=== PATIENT | female | born 1980 | race Caucasian/White ===

== ENCOUNTER → 2016-04-04 | Outpatient (CLI) | payer BC ==
[~2016-04-04] MED LIST: BCPILLS PO; LEVO50TA6 PO; SERT-234 PO
[2016-04-04 13:37] LABS: CHOLESTEROL/HDL RATIO 4.7; THYROID STIMULATING HORMONE 1.62 uIu/ml (0.300-4.500)
== END | disposition home or self-care (01) ==
LOC: C.LABMFLN 08:21
PROVIDERS: ATTEND Family Medicine
DX: Z13.1 Encounter for screening for diabetes mellitus (principal); Z13.220 Encounter for screening for lipoid disorders; E03.9 Hypothyroidism, unspecified

== ENCOUNTER → 2016-05-17 | Outpatient (CLI) | payer BC | END | disposition home or self-care (01) | LOC: C.PAPS 11:45 | PROVIDERS: ATTEND Obstetrics & Gynecology | DX: Z01.411 Encounter for gynecological examination (general) (routine) with abnormal findings (principal); R87.616 Satisfactory cervical smear but lacking transformation zone ==

== ENCOUNTER 2023-07-15 05:29 | Observation (INO) ==
--- NOTE | 2023-07-01 09:21 | Anesthesiology Consultation ---
Date of Service July 01, 2023 Assessment & Plan (1) Encounter for pre-operative examination: - check urine test STAT am DOS. - Per curriculum and assessment coordinator on 06/30/23: No known infectious disease contacts, current infectious disease symptoms in past 10 days or COVID positive test result in the past 30 days. Chart Review Chart Review: Acceptable Risk for Surgery and Patient NOT seen in Pre Admission Testing History Surgery Operation Date: 07/15/23 07:00 Proposed Procedures p Bilateral Breast Mastectomy - Reji Beasley DO s First Stage Immediate Breast Reconstruction with Tissue Biostatistics Manager and Acellular Dermal Matrix - Sanam Arnold MD Height/Weight Height: 5 ft 6 in Weight: 120.656 kg Allergies Allergy/AdvReac Type Severity Reaction Status Date / Time chlorpheniramine Allergy Unknown LOOPY Verified 06/30/23 12:16 [From Aller-Chlor DEPRESSIVE Decongestant] STATE pseudoephedrine Allergy Unknown LOOPY Verified 06/30/23 12:16 [From Aller-Chlor DEPRESSIVE Decongestant] STATE Medications Home Medications Medication Instructions Recorded Confirmed Last Taken tamoxifen 20 mg tablet 20 mg PO HS 03/01/22 06/30/23 Unknown buspirone 15 mg tablet 15 mg PO HS #90 tabs 02/17/23 06/30/23 Unknown sertraline 100 mg tablet 150 mg (1.5 x 100 mg) PO HS #135 04/25/23 06/30/23 Unknown tabs levothyroxine 50 mcg tablet 50 mcg PO DAILYBB #90 tabs 06/21/23 06/30/23 Unknown cephalexin 500 mg capsule 500 mg PO TID 2 weeks #42 caps 06/30/23 06/30/23 Unknown omega 3-vbg-evm-fish oil 60 mg-90 1 cap PO DAILY 06/30/23 06/30/23 Unknown mg-500 mg capsule (Fish Oil) oxycodone-acetaminophen 5 mg-325 1 tab PO Q4H PRN pain #18 tabs 06/30/23 06/30/23 Unknown mg tablet (Endocet) pravastatin 10 mg tablet 10 mg PO HS 06/30/23 06/30/23 Unknown Past Medical History Medical History Abnormal menstrual cycle Premenopausal per 06/2021 INSURANCE ACCOUNT SPECIALIST note ADD (attention deficit disorder) Atypical ductal hyperplasia of right breast Depression with anxiety Hiatal hernia Hyperlipidemia Diet controlled per 05/2021 PCP note Hypothyroidism Kidney stones passed on own MVP (mitral valve prolapse) no cardio > No murmur noted at 05/2021 PCP appt Past Family History Family History Grandmother (Paternal) Breast cancer BRCA 1 positive Diabetes Aunt , Passed age 31 Breast cancer, Onset Age: 28 BRCA 1 positive, bilateral masectomy, chemo, radiation Father Diabetes Depression Hypertension Mother Hypertension Diabetes Unknown Breast cancer, Onset Age: 26 BRCA 1 positive, bilateral masectomy, chemo, radiation Aunt Breast cancer, Onset Age: 42 BRCA 1 positive, diagnosed at 42 as DCIS - 6 years later path revealed actualy invasive BC, bilateral masectomy Aunt Breast cancer, Onset Age: 44 BRCA 1 negative, DCIS, radiation and hormonal therapy Daughter No problems noted. Son No problems noted. Other Ovarian cancer Denies family history of Colorectal cancer Past Surgical History Surgical History H/O oral surgery WISDOM TEETH H/O right breast biopsy (11/06/21) Right Breast Biopsy with Needle Localization - Reji Beasley DO History of colonoscopy History of lumpectomy of left breast (2016) 2012 History of lumpectomy of right breast S/P fine needle aspiration (2009) Left Breast Social History Smoking Status: Never smoker Do You Dip or Chew Tobacco: No Hx Alcohol Use: No Hx Substance Use: No substance use type: does not use Lab Results Anesthesia Preop Results Results Anesthesia Widget: WBC 4.91 K/ul (4.8-10.8) 06/30/23 Hgb 12.4 g/dl (12.0-16.0) 06/30/23 Hct 36.9 % (37.0-47.0) L 06/30/23 Plt 219 K/uL (130-400) 06/30/23 Na 137 mmol/L (136-145) 06/30/23 K 3.5 mmol/L (3.5-5.1) 06/30/23 Cl 106 mmol/L (98-107) 06/30/23 CO2 22 mmol/L (21-32) 06/30/23 BUN 12 mg/dl (6-23) 06/30/23 Creat 0.67 mg/dl (0.6-1.2) 06/30/23 Glucose Level 139 mg/dl (70-99(Fasting)) H 06/30/23 PT 10.4 Seconds (9.0-12.0) 06/30/23 INR 0.9 (0.9-1.1) 06/30/23
[2023-07-15] MEDS: LR 15ML/HR IV SCH (06:20)
[2023-07-15] MEDS: LR 60ML/HR IV SCH (06:21)
--- NOTE | 2023-07-15 06:45 | History & Physical Bridge Note ---
Date of Service July 15, 2023 History & Physical Bridge Note I have examined the patient, reviewed the History & Physical and in the interval since the performance of the History & Physical I have noted the following changes of clinical significance: no changes noted
[2023-07-15] MEDS ORDERED: REMIFENTANIL HCL 1 MG VIAL IV ONE (06:47)
[2023-07-15] MEDS ORDERED: DexMEDEtomidine HCL IV 100 MCG/ML VIAL IV ONE (06:47)
[2023-07-15] MEDS ORDERED: fentaNYL citrate PF 100 MCG/2 ML VIAL ONE (06:48)
[2023-07-15] MEDS ORDERED: MIDAZOLAM HCL 1 MG/ML 2ML VIAL ONE (06:48)
[2023-07-15] MEDS ORDERED: DEXAMETHASONE SOD INJ 4 MG/ML VIAL ONE (06:53)
[2023-07-15] MEDS ORDERED: LIDOCAINE 2% 2 ML VIAL/AMP(20MG/ML) INFIL ONE (06:53)
[2023-07-15] MEDS ORDERED: ROCURONIUM BROMIDE 10 MG/ML 5 ML VIAL IV ONE ×4 (06:53→12:11)
[2023-07-15] MEDS ORDERED: ONDANSETRON INJ 2 MG/ML 2 ML VIAL ONE (06:53)
[2023-07-15] MEDS ORDERED: PROPOFOL IV EMULSION 10 MG/ML 20 ML VIAL IV ONE (06:53)
[2023-07-15] MEDS: ceFAZolin 3000MG 3,000 MG/72.5 ML BAG IV SCH (07:00)
[2023-07-15] MEDS: TRANEXAMIC ACID 1,000 MG **IV Pre-op IV SCH (07:20)
[2023-07-15] MEDS: LIDOCAINE 1%/EPINEPHRINE 1:100,000 20 ML VIAL ONE (07:35)
[2023-07-15] MEDS ORDERED: PROPOFOL IV EMULSION 10 MG/ML 100 ML VIAL IV ONE (08:14)
[2023-07-15] MEDS ORDERED: ATROPINE SULFATE 0.1 MG/ML 10ML SYR IV PRN (09:17)
[2023-07-15] MEDS ORDERED: ONDANSETRON INJ 2 MG/ML 2 ML VIAL IV PRN ×2 (09:17→14:59)
[2023-07-15] MEDS ORDERED: HYDROmorphone INJ 2 MG/ML SYR/VIAL IV PRN (09:17)
[2023-07-15] MEDS ORDERED: ePHEDrine sulfate 50 MG/ML AMP IV PRN (09:17)
[2023-07-15] MEDS ORDERED: PROMETHAZINE HCL 6.25 MG in SODIUM CHLORIDE 0.9% 50 ML IV PRN (09:17)
[2023-07-15] MEDS ORDERED: diphenhydrAMINE 50 MG/ML VIAL ONE (09:20)
[2023-07-15] MEDS ORDERED: ceFAZolin 330 MG/ML 1 GM VIAL ONE ×2 (09:22)
--- NOTE | 2023-07-15 10:25 | Post Operative Brief Note ---
PG Immediate Post Op with CF Date of Surgery July 15, 2023 Pre & Post Diagnosis Operation Date: 07/15/23 07:00 Pre-Op Diagnosis: History Right Breast Ductal Carcinoma in Situ, Left Breast Papilloma Post-Op Diagnosis: History Right Breast Ductal Carcinoma in Situ, Left Breast Papilloma I identified the patient and participated in the time-out.: Yes Procedure Operation Date: 07/15/23 07:00 Actual Procedures p Bilateral Breast Mastectomy - Reji Beasley DO Surgeon Reji Beasley DO Color Checker Roving Or Yarn Tiffani Palomo PA-C, Zofia Fink PA-C Estimated Blood Loss 50 Findings Consistent with Post-Op Diagnosis Specimens Specimen Description: A: Right Breast-Short stitch superior; Long stitch lateral B: Left Breast-Short stitch superior; Long stitch lateral C: Additional left breast tissue, lateral axillary tail Anesthesia Type General Complications none Disposition Disposition: Recovery Room
--- NOTE | 2023-07-15 10:27 | Operative Report ---
PG Post Operative Report Pre & Post Diagnosis Operation Date: 07/15/23 07:00 Pre-Op Diagnosis: History Right Breast Ductal Carcinoma in Situ, Left Breast Papilloma Post-Op Diagnosis: History Right Breast Ductal Carcinoma in Situ, Left Breast Papilloma I identified the patient and participated in the time-out.: Yes Procedure Operation Date: 07/15/23 07:00 Actual Procedures p Bilateral Breast Mastectomy - Reji Beasley DO Surgeon Reji Beasley DO Business Continuity Management Director Tiffani Palomo PA-C, Zfoia Fink PA-C Estimated Blood Loss 50 Findings Consistent with Post-Op Diagnosis Specimens A: Right Breast-Short stitch superior; Long stitch lateral B: Left Breast-Short stitch superior; Long stitch lateral C: Additional left breast tissue, lateral axillary tail Drains None Anesthesia Type General Complications none Disposition Disposition: Recovery Room Indications 43 yo female with history of right breast DCIS, now with left breast papilloma Description of Procedure The patient was brought to the OR and placed in the supine position with both arms abducted. At this time she underwent general endotracheal anesthesia without any problems. She was given appropriate pre-operative antibiotics. Her bilateral chest and axilla were prepped and draped in the usual sterile fashion. Timeout was called. The procedure was verified as Bilateral Total Mastectomy. Surgical, anesthesia and nursing teams agreed and the procedure was begun. A transverse elliptical incision was made on the right breast to include the nipple areolar complex along the skin lines marked out by Dr. Arnold This was carried down the the subcutaneous tissue with electrocautery. At this point skin flaps were raised with electrocautery superiorly to the clavicle, medially to the sternum, inferiorly to the inframammary fold, and laterally to the latissimus. The breast tissue was then removed from the pectoralis major muscle along the with fascia. The breast was then transected laterally and sent of as specimen. The chest was irrigated until clear and hemostasis was achieved and complete using electrocautery. We then packed the right chest with wet lap pads and proceeded to the left mastectomy. The left mastectomy was completed in the same fashion as the right. There was some extra tissue in the left lateral axillary tail that was excised after the breast was removed and sent as a separate specimen. At this time the incision was irrigated until clear. Hemostasis was achieved using electrocautery. Hemostasis was complete. The satnam tient was then left intubated under general anesthesia and care turned over to Dr. Arnold for her portion of the case and the patient remained stable throughout the entire case. Needle and sponge count were correct x 2. The physician assistants was present and scrubbed for the entire case. They were essential for positioning, prepping and draping the patient, retraction and exposure, closure of the incision and placement of the dressings. I attest to the content of the Intraoperative Record and any orders documented therein. Any exceptions are noted below.
[2023-07-15] MEDS: ceFAZolin 2000MG 2,000 MG/15 ML SYR IV ONE (11:00)
[2023-07-15] MEDS: GENTAMICIN SULFATE 40 MG/ML 2 ML VIAL ONE (11:11)
[2023-07-15] MEDS: ceFAZolin 330 MG/ML 1 GM VIAL ONE (11:12)
[2023-07-15] MEDS: BUPIVACAINE 0.25% PF 30 ML VIAL ONE (11:13)
[2023-07-15] MEDS ORDERED: HYDROmorphone INJ 1 MG/ML SYRINGE ONE ×2 (12:23→12:38)
[2023-07-15] MEDS ORDERED: GLYCOPYRROLATE 0.2 MG/ML VIAL ONE ×2 (12:30→12:31)
[2023-07-15] MEDS ORDERED: NEOSTIGMINE METHYLSULFATE 1 MG/ML 10ML VIAL ONE (12:30)
[2023-07-15] MEDS: [UNRECOGNIZED DRUG - REMARK] IV SCH (12:30)
--- NOTE | 2023-07-15 12:50 | Post Operative Brief Note ---
PG Immediate Post Op with CF Date of Surgery July 15, 2023 Pre & Post Diagnosis Operation Date: 07/15/23 07:00 Pre-Op Diagnosis: Right Breast Ductal Carcinoma in Situ, Left Breast Papilloma Post-Op Diagnosis: Right Breast Ductal Carcinoma in Situ, Left Breast Papilloma I identified the patient and participated in the time-out.: Yes Procedure Operation Date: 07/15/23 07:00 Actual Procedures p Bilateral Breast Mastectomy - Reji Beasley DO s Bilateral First Stage Immediate Breast Reconstruction with Tissue Janitorial Maintenance Worker and Acellular Dermal Matrix - Sanam Arnold MD Surgeon Sanam Arnold MD Roofing Plant Supervisor Tiffani Palomo PA-C, Zofia Fink PA-C Estimated Blood Loss 50 Findings See Below 6x4 cm area left lateral superior flap thin but with capillary refill, no venous congestion Specimens Specimen Description: A: Right Breast-Short stitch superior; Long stitch lateral B: Left Breast-Short stitch superior; Long stitch lateral C: Additional left breast tissue, lateral axillary tail Drains K[place]ney Catheter and Laith-Bingham Drain (15Fr Round to Bilateral Breast) Anesthesia Type General Complications none
--- NOTE | 2023-07-15 13:16 | Operative Report ---
PG Post Operative Report Pre & Post Diagnosis Operation Date: 07/15/23 07:00 Pre-Op Diagnosis: Right Breast Ductal Carcinoma in Situ, Left Breast Papilloma Post-Op Diagnosis: Right Breast Ductal Carcinoma in Situ, Left Breast Papilloma I identified the patient and participated in the time-out.: Yes Procedure Operation Date: 07/15/23 07:00 Actual Procedures p Bilateral Breast Mastectomy - Reji Beasley, DO s Bilateral First Stage Immediate Breast Reconstruction with Tissue Executive Associate and Acellular Dermal Matrix - Sanam Arnold MD Surgeon Sanam Arnold MD Pipe Fitter Soft Copper Tiffani Palomo PA-C, Zofia Fink PA-C Estimated Blood Loss 50 Findings See Below Specimens per Dr. Beasley Drains JPx2 Anesthesia Type General Complications none Disposition Disposition: Recovery Room Indications History right breast ductal carcinoma in situ, s/p radiation and lumpectomy, intraductal papilloma on the left, strong family history of breast cancer, desiring bilateral mastectomy with reconstruction Description of Procedure Risk, benefits, terms of procedure were explained to the patient agreed and signed consent. She was notified about the preoperative holding area, marked with Dr. Beasley present prior to heading to the OR. Bilateral mastectomy was performed by Dr. Beasley and will be separately dictated. A new timeout procedure was performed upon his completion, surgical field was prepped with Betadine and redraped. I began with the left side. Wound was inspected and hemostasis was achieved with electrocautery. There was a 4 x 6 cm area on the left superior lateral flap which was quite thin, located about 4 cm superior to the incision. did appear to have capillary refill, bright red bleeding, and without evidence of venous congestion so I did elect to leave it in place. Remainder of the flap was of uniform thickness. Pectoralis major muscle was then identified and elevated. Inferior attachments of pectoralis major muscle were divided along the ribs medially to the sternum. None of the sternal attachments were dissected. The retropectoral plane was then developed using electrocautery. Hemostasis was achieved using cautery. Once adequate dissection had been performed, I then chose a piece of medium contour thick AlloDerm which was then used to create a sling for the lower pole. This was first sutured to the inframammary fold using 2-0 Vicryl U stitches. Pocket was then measured and base diameter was 14 cm. Therefore, I selected a Allergan style 133S MVT tissue crown and bridge dental lab technician with base diameter of 14 cm, fill volume 500 cc serial #[id number]. The crown and bridge dental lab technician was prepared and air was aspirated out. The crown and bridge dental lab technician was soaked in antibiotic irrigation and antibiotic irrigation was used to irrigate the pocket. All instruments were wiped down and gloves were changed. Executive Associate was placed along the inframammary fold as medially as possible. Suture tabs were sutured down to underlying periosteum using a 2-0 Vicryl suture. The remainder of the crown and bridge dental lab technician was then enclosed using 2-0 Vicryl running suture to reapproximate the AlloDerm which had been trimmed to size and this was approximated to the pectoralis major muscle. Laterally, this was closed down using 2-0 Vicryl interrupted sutures as well. A 15-Russian Reji drain was placed in the wound and brought out through a separate stab incision. Prior to reapproximating the wound the fill port was identified using the magna-finder and accessed using a Fourte needle. A total of 350 mL were placed prior to closure, which allowed the wound to be closed without undue tension but well minimizing space within the pocket. Wound was reapproximated using 2-0 Vicryl deep dermal suture, 3-0 PDS superficial dermal suture and 3-0 Monocryl running subcuticular suture. Drain was sutured in place using 3-0 nylon. An identical procedure was performed on the right side, selecting an identical crown and bridge dental lab technician with serial #[id number] and again placing 350 cc of normal saline.. A Provena Genesis dressing was placed. The drain site was dressed using Acticoat dry dressing and Tegaderm. Procedure was tolerated well. Zofia Fink PA-C was present and scrubbed throughout the entire procedure and was instrumental in providing exposure during elevation of pectoralis muscle and suturing of the AlloDerm as well as filling expanders and assisting i n wound closure. I attest to the content of the Intraoperative Record and any orders documented therein. Any exceptions are noted below.
[2023-07-15] MEDS: fentaNYL citrate PF 100 MCG/2 ML VIAL IV PRN (13:27)
--- NOTE | 2023-07-15 14:05 | Anesthesiology Progress Note ---
Date of Service July 15, 2023 Anesthesia Post Procedure Vital Signs Vital Signs: Temp Pulse Pulse Resp BP BP Pulse Ox 07/15/23 14:00 82 17 138/84 96 07/15/23 13:50 77 14 136/79 96 07/15/23 13:40 37.1 C 84 14 142/81 H 94 07/15/23 13:30 83 17 150/78 H 94 07/15/23 13:20 85 15 127/68 98 07/15/23 13:10 87 15 114/61 99 07/15/23 13:00 36.5 C 96 H 17 119/70 99 07/15/23 05:52 36.8 C 78 20 117/80 97 O2 Del Method O2 Flow Rate 07/15/23 14:00 Nasal Cannula 2 07/15/23 13:50 Nasal Cannula 2 07/15/23 13:40 Nasal Cannula 2 07/15/23 13:30 Oxymask 2 07/15/23 13:20 Oxymask 5 07/15/23 13:10 Oxymask 10 07/15/23 13:00 Oxymask 10 07/15/23 05:52 Room Air Pain Intensity Chest: Pain Intensity: 6 Bilateral Arm: Pain Intensity: 4 Transfer of Care Handoff Completed per policy Notes Mental Status: alert / awake / arousable and participated in evaluation Patient Amnestic to Procedure: Yes Nausea / Vomiting: adequately controlled Pain: adequately controlled Airway Patency, RR, SpO2: stable & adequate BP & HR: stable & adequate Hydration State: stable & adequate Anesthetic Complications: no major complications apparent
[2023-07-15] MEDS ORDERED: PROMETHAZINE HCL 12.5 MG in SODIUM CHLORIDE 0.9% 50 ML IV PRN (14:59)
[2023-07-15] MEDS ORDERED: LORazepam 0.5 MG TAB PO PRN (14:59)
[2023-07-15] MEDS ORDERED: ACETAMINOPHEN 325 MG TAB PO PRN (14:59)
[2023-07-15] MEDS ORDERED: MoRPHine SULFATE 2 MG/ML CARP IV PRN (14:59)
[2023-07-15] MEDS: D5W AND 1/2NSS + 20MEQ KCL 20 MEQ/1,000 ML BAG IV SCH (15:51)
[2023-07-15] MEDS: oxyCODONE/ACETAMINOPHEN 5mg/325mg TAB PO PRN ×2 (16:10→22:59)
[2023-07-15] MEDS: MoRPHine SULFATE 4 MG/ML 1 ML CARP\\VIAL IV PRN (17:17)
[2023-07-15] MEDS: ceFAZolin 2000MG 2,000 MG/15 ML SYR IV SCH (18:45)
[2023-07-15 19:25] LABS: Hemoglobin 11.8 g/dl (12.0-16.0)
[2023-07-15] MEDS: PRAVASTATIN SOD 10 MG TAB PO SCH (20:52)
[2023-07-15] MEDS: SERTRALINE HCL 50 MG TABLET PO SCH (20:52)
[2023-07-15] MEDS: busPIRone 15 MG TAB PO SCH (20:53)
[2023-07-16 03:26] VITALS: RESP 16
[2023-07-16] MEDS: LEVOTHYROXINE SODIUM 50 MCG TABLET PO SCH (06:05)
--- NOTE | 2023-07-16 07:27 | Surgery Progress Note ---
Date of Service July 16, 2023 Assessment & Plan (1) Encounter for breast reconstruction following mastectomy: Plan: Patient is doing well s/p bilateral mastectomy with immediate reconstruction. Her post-op pain is as expected. She will be d/c home today, office follow-up tomorrow. Post-surgical instructions were reviewed with the pateint. Admission and Anticipated Discharge Date Admission Date: July 15, 2023 Virginia Dorantes is resting in bed. She had near syncopal episode last night, feels it was due to pain. She has not an any episodes since. She is tolerating regular diet. Physical Exam Physical Exam: wound vac holding suction. drains with 20cc serosang output Results & Data Vital Signs (Past 12 Hours) Vital Signs Temp Pulse Resp BP BP Pulse Ox O2 Del Method 07/16/23 03:25 37 C 82 16 124/75 96 Room Air 07/15/23 23:16 36.8 C 82 18 107/66 96 Room Air 07/15/23 19:47 37.0 C 85 18 119/75 97 Room Air PG Care Time/CCT Total # of Minutes Spent Total Time Spent with Patient: Total time spent is greater than 50% in coordination of care (as documented) at patient's floor/unit and/or counseling patient: Coding Level of Care Code 63923 Post Operative Follow-Up Diagnoses Encounter for breast reconstruction following mastectomy Z42.1
[2023-07-16 07:44] VITALS: PULSE 77; TEMP 98.4; O2SAT 94
[2023-07-16] MEDS: MULTIVITAMIN TAB PO SCH (08:20)
--- NOTE | 2023-07-16 08:40 | Surgery Progress Note ---
Date of Service July 16, 2023 Assessment & Plan (1) H/O bilateral mastectomy: Plan: Doing well post-op Can be discharged when ok with plastic surgery F/u with me in 2 weeks Admission and Anticipated Discharge Date Admission Date: July 15, 2023 Subjective Pt seen and examined. Expected post-op pain. Afebrile. No acute events overn ight. Physical Exam Constitutional: WD/WN, vitals as above Chest (Breasts): Additional Comments: Dressings intact Results & Data Vital Signs (Past 12 Hours) Vital Signs Temp Pulse Resp BP Pulse Ox O2 Del Method 07/16/23 07:39 36.9 C 77 16 123/76 94 Room Air 07/16/23 03:25 37 C 82 16 124/75 96 Room Air 07/15/23 23:16 36.8 C 82 18 107/66 96 Room Air PG Care Time/CCT Total # of Minutes Spent Total Time Spent with Patient: Total time spent is greater than 50% in coordination of care (as documented) at patient's floor/unit and/or counseling patient: Coding Level of Care Code 93884 Post Operative Follow-Up Diagnoses H/O bilateral mastectomy Z90.13
[2023-07-16 10:19] VITALS: BP 119/75
--- NOTE | 2023-07-17 11:10 | Discharge Summary ---
Date of Service July 17, 2023 Admission HPI Per Admitting Provider Jayna presents with history of increased risk of breast cancer. Admission Exam Per Admitting Provider see admission H&P Principal Diagnosis increased risk of breast cancer Discharge Exam wound vac holding suction. drains with 20cc serosang output Discharge Data Allergies Allergy/AdvReac Type Severity Reaction Status Date / Time chlorpheniramine Allergy Unknown LOOPY Verified 07/15/23 05:57 [From Aller-Chlor DEPRESSIVE Decongestant] STATE pseudoephedrine Allergy Unknown LOOPY Verified 07/15/23 05:57 [From Aller-Chlor DEPRESSIVE Decongestant] STATE Procedures Performed Operation Date: 07/15/23 07:00 Actual Procedures p Bilateral Breast Mastectomy - Reji Beasley DO s Bilateral First Stage Immediate Breast Reconstruction with Tissue Town Manager and Acellular Dermal Matrix - Sanam Arnold MD Hospital Course (1) Encounter for breast reconstruction following mastectomy: Patient presented to [facility] with history of breast cancer. She was taken to the OR and underwent bilateral mastectomy with Dr. Beasley and immediate breast reconstruction using tissue expanders and acellular dermal matrix with Dr. Arnold. There were no intraoperative complications.Tissue expanders filled to 350cc. Prevena wound vac applied over incisions. She was taken to recovery and transferred to med/surg for observation. On POD#1, she was feeling well. She was tolerating a regular diet and ambulating. On exam, her vitals were stable. Her incisions were CDI. Her drains had appropriate output. She was discharged home with instructions to follow-up in the office in one day. Total Time Total Time Spent Total Time Spent (In Minutes): 15 Total Time Includes: Examination of the Patient and Communication With Other Providers Discharge Plan Discharge Items Patient Disposition: Home - Self-Care Reason For Visit: POST-OP Discharge Diagnosis: Bilateral Breast Mastectomy Surgeon: Dr. Beasley Bilateral First Stage Immediate Breast Reconstruction with Tissue Town Manager and Acellular Dermal Matrix Surgeon: Dr. Arnold Activity: As commented below Non-emergency contact: Surgeon Call non-emergency contact if: you have any medication questions, your pain is not controlled, your temperature is above 101.5, your wound has increased redness and your wound has increased drainage Follow-up/Referrals: Sanam Arnold MD [Physician] - 07/17/23 1:30 pm Reji Beasley DO [Physician] - 07/30/23 11:00 am (call to schedule follow up in clinic within 2 weeks) Bhaskar Tinsley DO [Primary Care Provider] - 08/13/23 8:00 am Diet: Regular Addtl Attending Provider Instructions: ACTIVITY RECOMMENDATIONS: __Normal activities _x_No bending, lifting or straining. Keep arms at shoulder height or below. __No driving __Driving allowed when you are off pain medications _x_Walking permitted __You should have help at home for ___ days DRESSINGS: __No dressings required _x_Keep dressings dry/in place until first office visit. Charge wound vac as needed. __Remove dressings ___ and leave dressings off __Apply ice ___ days __Remove dressings and reapply garment __Apply antibiotic ointment (Bacitracin, Neosporin, etc) to wounds 3-4 times/day for 10 days BATHING: _x_Keep dressings dry _x_Sponge bathing permitted away from surgical dressings __Showering permitted _x_No swimming, hot tubs or soaking in a tub MEDICATIONS: Resume previous medications unless instructed otherwise by your surgeon. _x_Do not use aspirin, Motrin, Advil or Ibuprofen as these may promote bleeding. Please use Tylenol. _x_Prescription(s) provided: pain medication and antibiotics were provided at your last office visit. Begin antibiotics today. OTHER INSTRUCTIONS: _x_Record drain output 2-3 times per day SPECIAL CARE INSTRUCTIONS: * It is normal to have a mild fever after surgery. If your temperature is higher than 101.5 degrees F, please call the office at [phone]. * Constipation is a typical side effect of pain medication. An yvex-hns-wjbllbg stool softener will help relieve this. * Leaking around surgical drains may occur and should not cause concern. Sometimes these drains become clogged. If this happens, remove the bulb and milk the clot out of the tube, then replace the bulb. * Drainage from wounds after liposuction is normal and should be expected. Garments will become soiled. You should protect furniture and bedding. This drainage should mostly subside within 2-3 days. Leave garments in place unless instructed to remove them. * If you have unusual drainage from a wound or are concerned you have an infection or have any questions or concerns, please call the office at [phone]. FOLLOW UP VISIT: If not already scheduled, please call the office, , when you return home after surgery to schedule an appointment to be seen in __1_ days. Pending Studies at Discharge: Yes Studies:: surgical pathology Stand-Alone Forms: My [facility] Medications and DC Order Prescriptions: Continued levothyroxine 50 mcg tablet 50 mcg PO DAILYBB Qty: 90 3RF sertraline 100 mg tablet 150 mg PO HS Qty: 135 0RF buspirone 15 mg tablet 15 mg PO HS Qty: 90 0RF cephalexin 500 mg capsule 500 mg PO TID 14 Days Qty: 42 0RF oxycodone-acetaminophen [Endocet] 5-325 mg tablet 1 tab PO Q4H PRN (Reason: pain) Qty: 18 0RF Rx Instructions: initial therapy Dr. Arnold [id number] pravastatin 10 mg tablet 10 mg PO HS Discontinued tamoxifen 20 mg tablet 20 mg PO HS Hold Instructions: patient started holding on 06/23/2023 Patient Comments: stopped on june 23, 2023 omega 7-nsx-drq-fish oil [Fish Oil] 60-90-500 mg capsule 1 cap PO DAILY Hold Instructions: surgery Discharge Orders: Discharge Order (Routine); Ordered 07/16/23 Ordered By: Zofia Fink Admission Data Admit Date/Time: 07/15/23 13:11 Attending Provider: Reji Beasley Admit Provider: Sanam Arnold Primary Care Provider: Bhaskar Tinsley Other Interventions: Discharge Summary Assessment (RN) Last Done: 07/16/23 10:18 Coding Level of Care Code 12067 OBS Care - Discharge Diagnoses Encounter for breast reconstruction following mastectomy Z42.1
== END 2023-07-16 13:10 | disposition home or self-care (01) ==
LOC: ASU 05:29 → 3W 05:29
DX: Z98.890 Other specified postprocedural states; I34.1 Nonrheumatic mitral (valve) prolapse; N60.12 Diffuse cystic mastopathy of left breast; E78.5 Hyperlipidemia, unspecified; Z80.3 Family history of malignant neoplasm of breast; E03.9 Hypothyroidism, unspecified; K44.9 Diaphragmatic hernia without obstruction or gangrene; Z79.899 Other long term (current) drug therapy; Z88.8 Allergy status to other drugs, medicaments and biological substances; F98.8 Other specified behavioral and emotional disorders with onset usually occurring in childhood and adolescence; F32.A Depression, unspecified; D24.2 Benign neoplasm of left breast; F41.9 Anxiety disorder, unspecified; D05.11 Intraductal carcinoma in situ of right breast

== ENCOUNTER 2023-08-07 10:37 | Inpatient (IN) ==
--- NOTE | 2023-08-07 11:26 | Emergency Department Note ---
Impression & Plan Chest pain, Pulmonary emboli, Shortness of breath ED Provider Note HISTORY OF PRESENT ILLNESS: Patient is a 43-year-old female presenting with chest pain and shortness of breath. Patient reports she has a double mastectomy 3 weeks ago. States that yesterday she had []. States that last night she developed pain in the right side of her chest and right shoulder. States that she became short of breath. Denies any fevers. Denies any DVT or PE history. She reports that the pain and discomfort continued into this morning and she got worked up and was feeling very short of breath, prompting her to present to the ER. She did take a tramadol this morning which seems to have alleviated the pain on her arrival to the ER. ROS: as above PHYSICAL EXAM: Constitutional: Patient appears in no acute distress. HENT: Head: Normocephalic and atraumatic. Eyes: EOMI, PERRL Mouth/Throat: Mucous membranes moist. Neck: Trachea midline. Neck supple. Cardiovascular: RRR, No murmurs, rubs or gallops. Intact distal pulses. Pulmonary/Chest: No respiratory distress. Breath sounds clear and equal bilaterally. No wheezes or rales. Patient has bandages over her right breast. No tenderness to palpation to the chest wall. Abdominal: Abdomen soft, no tenderness, rebound or guarding. Musculoskeletal: No edema, tenderness or deformity noted. Skin: Warm and dry. No rash, erythema, pallor or cyanosis Psychiatric: Appropriate mood and affect for situation. Neurological: Alert and keenly responsive. CN II-XII grossly intact, moving all extremities equally and fully. MDM: - Vitals signs showed tachycardia - History obtained via patient. History as above. - Chronic conditions affecting care: breast cancer (s/p mastectomy); HLD; hypothyroidism; depression/anxiety - Differential diagnoses include, but are not limited to: Acute coronary syndrome; pulmonary embolism; dissection; tension pneumothorax; esophageal rupture; pneumonia - Order placed for continuous cardiac monitoring. At this time, monitor showed rate of 90 bpm with normal sinus rhythm, per my interpretation. - External medical records reviewed. Plastic surgery office visit note dated 08/06/2023 was reviewed. Patient was seen in their clinic for postoperative follow-up after bilateral mastectomy with reconstruction. Her incisions appeared well-healed. Tissue expanders were filled with 100 cc and the right drain was removed. - EKG interpreted by myself showed normal sinus rhythm. Rate 98 bpm. QT 378. No acute ischemic changes - Laboratory workup interpreted by myself showed normal WBC; stable electrolytes; normal troponin; normal BNP - UA negative for infection - COVID negative - CXR negative for pneumonia, per my interpretation - CT chest with contrast showed pulmonary emboli with concern for associated right heart strain. Noted to have trace pleural effusions with bibasilar consolidations suggesting probably right lower lobe infarction. - Heparin bolus and gtt ordered - Discussed results with the patient. She is not currently on any anticoagulation. Denies any history of intracranial or GI bleeds. She does appear very uncomfortable on reassessment and 0.5 mg IV Dilaudid was ordered. - Discussion was had with community case manager about patient's case and need for admission - Hospitalist consulted for admission - [facility]. I have personally spent 38 minutes of critical care time in the direct management of this patient. This includes bedside care, interpretation of diagnostic studies, and testing, discussion with consultants, patient, and family members, and other required patient management activities. This 38 minutes is in excess of all separately billable procedures. 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) Depression with anxiety (Chronic) Hypothyroidism (Chronic) Mitral valve disorder (Chronic) Hyperlipidemia (Chronic) Diet controlled per 05/2021 PCP note Medical History (Updated 08/07/23 @ 14:53 by Tegan Johns MD) ADD (attention deficit disorder) Kidney stones passed on own Hiatal hernia Hypothyroidism Atypical ductal hyperplasia of right breast MVP (mitral valve prolapse) no cardio > No murmur noted at 05/2021 PCP appt Depression with anxiety Abnormal menstrual cycle Premenopausal per 06/2021 [facility] note Surgical History (Updated 07/31/23 @ 00:09 by Kitty Richter) H/O bilateral mastectomy (07/15/23) Bilateral Breast Mastectomy - Reji A. Ramos, DO History of lumpectomy of right breast H/O right breast biopsy (11/06/21) Right Breast Biopsy with Needle Localization - Reji Beasley DO History of lumpectomy of left breast (2016) 2012 History of colonoscopy H/O oral surgery WISDOM TEETH S/P fine needle aspiration (2009) Left Breast Family History (Updated 07/30/23 @ 11:02 by Jayde Gonzalez, RN) Grandmother (Paternal) Breast cancer BRCA 1 positive Diabetes Aunt , Passed age 31 Breast cancer, Onset Age: 28 BRCA 1 positive, bilateral masectomy, chemo, radiation Father Diabetes Depression Hypertension Heart disease Mother Hypertension Diabetes Cancer Stroke Unknown Breast cancer, Onset Age: 26 BRCA 1 positive, bilateral masectomy, chemo, radiation Aunt Breast cancer, Onset Age: 42 BRCA 1 positive, diagnosed at 42 as DCIS - 6 years later path revealed actualy invasive BC, bilateral masectomy Aunt Breast cancer, Onset Age: 44 BRCA 1 negative, DCIS, radiation and hormonal therapy Daughter No problems noted. Son No problems noted. Brother Cancer Other Ovarian cancer Denies family history of Colorectal cancer Social History (Updated 07/30/23 @ 11:03 by Jayde Gonzalez, MENDY) Smoking Status: Never smoker Second Hand Exposure: Yes (as child); Do You Dip or Chew Tobacco: No; Hx Alcohol Use: Yes Alcohol type: beer and wine Hx Substance Use: No Preferred Language: Nigerien Communication Ability: Effective Visual Impairment: No Limitations Hearing Ability: Normal [employer] Required: No Beliefs That Will Affect Care: None marital status: Current Living Situation: Spouse current occupational status: employed current occupation: works from home How many Children do You have: 2 Feels Safe at Home: Yes Childhood Exposure to Second-Hand Smoke: No Diet: regular caffeine: Yes during the past year weight has: increased > 10 lbs Dental Care, Regularly: Yes Assistive Devices: None Allergies Allergies Allergy/AdvReac Type Severity Reaction Status Date / Time chlorpheniramine Allergy Unknown LOOPY Verified 08/07/23 13:07 [From Aller-Chlor DEPRESSIVE Decongestant] STATE pseudoephedrine Allergy Unknown LOOPY Verified 08/07/23 13:07 [From Aller-Chlor DEPRESSIVE Decongestant] STATE Home Meds Home Medications Medication Instructions Recorded Confirmed pravastatin 10 mg tablet 10 mg PO HS 06/30/23 08/07/23 Previous Rx's Medication Instructions Recorded levothyroxine 50 mcg tablet 50 mcg PO DAILYBB #90 tabs 06/21/23 buspirone 15 mg tablet 15 mg PO HS #90 tabs 07/02/23 sertraline 100 mg tablet 150 mg (1.5 x 100 mg) PO HS #135 07/02/23 tabs cyclobenzaprine 5 mg tablet 5 mg PO TID PRN muscle spasm #20 07/17/23 tabs tramadol 50 mg tablet 50 mg PO Q6H PRN pain 3 days #10 08/05/23 tabs Results & Data (ED) Vital Signs Vital Signs - 24 hr 08/07/23 10:37 08/07/23 10:37 08/07/23 10:38 Temperature 36.3 C L Temperature Source Temporal Artery Scan Pulse Rate 106 H Pulse Rate [Apical] Pulse Rate from SpO2 Sensor Pulse Rhythm Respiratory Rate 18 Respiratory Effort / Characteristics Non-Labored Spontaneous Non-Labored Spontaneous Respiratory Depth Normal Normal Respiratory Pattern Regular Regular Blood Pressure 125/71 Blood Pressure [Left Arm] Blood Pressure Mean 89 Blood Pressure Mean [Left Arm] Pulse Oximetry 98 95 Oxygen Delivery Method Room Air Room Air Room Air Sepsis Recent Fever Within 48 Hours No Sepsis New/Unexplained Change in Mental Status No Sepsis Action Taken by Nursing No Action Required 08/07/23 10:44 08/07/23 10:56 08/07/23 11:00 Temperature Temperature Source Pulse Rate 96 H 98 H Pulse Rate [Apical] Pulse Rate from SpO2 Sensor 99 H 100 H Pulse Rhythm Regular Respiratory Rate 22 29 H 26 H Respiratory Effort / Characteristics Respiratory Depth Respiratory Pattern Blood Pressure Blood Pressure [Left Arm] Blood Pressure Mean Blood Pressure Mean [Left Arm] Pulse Oximetry 98 96 97 Oxygen Delivery Method Room Air Sepsis Recent Fever Within 48 Hours Sepsis New/Unexplained Change in Mental Status Sepsis Action Taken by Nursing 08/07/23 11:00 08/07/23 11:30 08/07/23 12:00 Temperature Temperature Source Pulse Rate 96 H 94 H 92 H Pulse Rate [Apical] Pulse Rate from SpO2 Sensor 96 H 92 H Pulse Rhythm Respiratory Rate 22 20 Respiratory Effort / Characteristics Respiratory Depth Respiratory Pattern Blood Pressure 113/76 Blood Pressure [Left Arm] Blood Pressure Mean 85 Blood Pressure Mean [Left Arm] Pulse Oximetry 95 95 Oxygen Delivery Method Sepsis Recent Fever Within 48 Hours Sepsis New/Unexplained Change in Mental Status Sepsis Action Taken by Nursing 08/07/23 12:21 08/07/23 12:30 08/07/23 13:00 Temperature Temperature Source Pulse Rate 91 H 98 H 92 H Pulse Rate [Apical] Pulse Rate from SpO2 Sensor 98 H 92 H Pulse Rhythm Respiratory Rate 24 21 Respiratory Effort / Characteristics Respiratory Depth Respiratory Pattern Blood Pressure Blood Pressure [Left Arm] Blood Pressure Mean Blood Pressure Mean [Left Arm] Pulse Oximetry 94 95 Oxygen Delivery Method Sepsis Recent Fever Within 48 Hours Sepsis New/Unexplained Change in Mental Status Sepsis Action Taken by Nursing 08/07/23 13:30 08/07/23 14:00 08/07/23 14:23 Temperature Temperature Source Pulse Rate 96 H 96 H 96 H Pulse Rate [Apical] Pulse Rate from SpO2 Sensor 96 H 96 H 97 H Pulse Rhythm Respiratory Rate 30 H 22 32 H Respiratory Effort / Characteristics Respiratory Depth Respiratory Pattern Blood Pressure 136/77 Blood Pressure [Left Arm] Blood Pressure Mean 96 Blood Pressure Mean [Left Arm] Pulse Oximetry 95 94 96 Oxygen Delivery Method Sepsis Recent Fever Within 48 Hours Sepsis New/Unexplained Change in Mental Status Sepsis Action Taken by Nursing 08/07/23 14:23 08/07/23 14:49 Temperature Temperature Source Pulse Rate Pulse Rate [Apical] 100 H Pulse Rate from SpO2 Sensor Pulse Rhythm Respiratory Rate 23 Respiratory Effort / Characteristics Non-Labored Respiratory Depth Normal Respiratory Pattern Regular Blood Pressure 124/75 Blood Pressure [Left Arm] 120/72 Blood Pressure Mean 87 Blood Pressure Mean [Left Arm] 88 Pulse Oximetry 95 Oxygen Delivery Method Room Air Sepsis Recent Fever Within 48 Hours Sepsis New/Unexplained Change in Mental Status Sepsis Action Taken by Nursing Laboratory Data 08/07/23 11:11 08/07/23 11:11 Lab Results 08/07/23 08/07/23 08/07/23 Range/Units 11:11 11:20 Unknown WBC 9.44 (4.8-10.8) K/ul RBC 4.10 L (4.20-5.40) M/uL Hgb 11.7 L (12.0-16.0) g/dl Hct 35.4 L (37.0-47.0) % MCV 86.3 (80.0-100.0) fL MCH 28.5 (25.0-34.0) pg MCHC 33.1 (32.0-36.0) g/dL RDW Std Deviation 41.8 (36.4-46.3) fL RDW Coeff of Joie 13.3 (11.5-14.5) % Plt Count 314 (130-400) K/uL MPV 10.3 (9.4-12.4) fL Immature Gran % (Auto) 0.2 % Neut % (Auto) 78.9 % Lymph % (Auto) 11.3 % [place] % (Auto) 9.2 % Eos % (Auto) 0.2 % Baso % (Auto) 0.2 % Neut # (Auto) 7.44 H (1.40-6.50) K/uL Lymph # (Auto) 1.07 L (1.20-3.40) K/uL [place] # (Auto) 0.87 H (0.11-0.59) K/uL Eos # (Auto) 0.02 (0.00-0.50) K/uL Baso # (Auto) 0.02 (0.00-0.20) K/uL Immature Gran # (Auto) 0.02 (0.01-0.20) K/uL PT 10.9 (9.0-12.0) Seconds INR 1.0 (0.9-1.1) Sodium 137 (136-145) mmol/L Potassium 3.8 (3.5-5.1) mmol/L Chloride 103 (98-107) mmol/L Carbon Dioxide 25 (21-32) mmol/L Anion Gap 9 (3-11) BUN 10 (6-23) mg/dl Creatinine 0.55 L (0.6-1.2) mg/dl Est Cr Clr Drug Dosing 162.5 ml/min Est GFR ( Amer) 134.1 ml/min Est GFR (Non-Af Amer) 115.7 ml/min BUN/Creatinine Ratio 18.2 (10-20) Glucose 116 H (70-99(Fasting)) mg/dl Calcium 9.6 (8.6-10.3) mg/dl Magnesium 1.9 (1.7-2.4) mg/dl Total Bilirubin 0.5 (0.2-1.0) mg/dl AST 19 (13-39) U/L ALT 14 (7-52) U/L Alkaline Phosphatase 94 (34-104) U/L Troponin I High Sens 11.3 (0-14) pg/ml B-Natriuretic Peptide 14 (0-100) pg/ml Total Protein 7.7 (6.0-8.3) gm/dl Albumin 4.0 (3.4-5.0) gm/dl Globulin 3.7 (2.5-4.0) gm/dl Albumin/Globulin Ratio 1.1 (0.9-2) Urine Color Yellow Urine Appearance Clear (Clear) Urine pH 7.0 (4.5-7.5) Ur Specific [place] 1.017 (1.000-1.030) Urine Protein Negative (Negative) Urine Glucose (UA) Negative (Negative) Urine Ketones Negative (Negative) Urine Blood Negative (Negative) Urine Nitrite Negative (Negative) Urine Bilirubin Negative (Negative) Urine Urobilinogen Negative (Negative) Ur Leukocyte Esterase 1+ H (Negative) Urine WBC (Auto) 0-5 (0-5) /hpf Urine RBC (Auto) 0-2 (0-2) /hpf U Hyaline Cast (Auto) 0-2 (0-2) /lpf U Epithel Cells (Auto) 6-10 H (0-2) /hpf Urine Bacteria (Auto) None Seen (None Seen) SARS-CoV-2 (PCR) NEGATIVE (Negative) Administered Medications Discontinued Medications Hydromorphone HCl (Hydromorphone Inj 0.5 Mg/0.5 Ml Syr) 0.5 mg IV NOW STA Stop: 08/07/23 14:42 Last Admin: 08/07/23 14:50 Dose: 0.5 mg Documented By: WILMA Ioversol (Optiray 320 100ml) 95 ml IV ONCE ONE Stop: 08/07/23 13:52 Last Admin: 08/07/23 13:51 Dose: 95 ml Documented By: PLW Imaging Data Radiologist's Impression: Chest X-Ray 08/07/23 10:44 XR chest 1V portable CLINICAL HISTORY: Dyspnea TECHNIQUE: Single frontal radiograph of the chest was obtained. Comparison: Comparison is made to chest radiograph 01/08/2015 FINDINGS: No lines and tubes are seen. The cardiomediastinal silhouette is normal. Lungs are underinflated but clear. No evidence of pleural effusion or pneumothorax. IMPRESSION: Atelectasis without acute abnormality. ACT 112: Negative or not required by law. Electronically signed by: Joni Sullivan M.D. 08/07/2023 11:[address] 08/07/23 13:[address] WITH CONTRAST CT DOSE: 843.35 mGy.cm HISTORY: Right-sided chest pain with recent breast reconstruction recent breast implant manipulation; right CP TECHNIQUE: Multiaxial CT images of the chest were performed following the IV administration of 95 cc of Optiray. A dose lowering technique was utilized adhering to the principles of ALARA. COMPARISON: Chest radiograph of same day FINDINGS: Unremarkable thyroid. No pathologically enlarged lymph nodes. Is upper limits of normal in size. No pericardial effusion. Unremarkable thoracic aorta. Suboptimal evaluation of the pulmonary arterial tree secondary to phase of contrast. Pulmonary emboli are noted, most pronounced within the segmental and subsegmental branches of the right lower lobe, image 101 series 4. No saddle pulmonary embolus. There is mild straightening of the intraventricular septum. Trace pleural effusions with bibasilar consolidative densities extending to the pleural margins. No pneumothorax or overt pulmonary edema. No suspicious pulmonary nodules or masses. Central airways are patent. Hepatomegaly with hepatic steatosis. Bilateral breast implants/tissue expanders noted within a subpectoral distribution. Subcutaneous and deep tissue edema with skin thickening and subcutaneous emphysema. No postoperative fluid collections. No acute fracture. Likely benign sclerotic focus of the left clavicular head. Streak artifact from the tissue expanders limits the study. Study is also limited secondary to respiratory motion. IMPRESSION: 1. Limited exam as above. Pulmonary emboli with suggestion of associated right heart strain. 2. Trace pleural effusions with bibasilar consolidation suggestive of admixture of atelectasis with probable right lower lobe pulmonary infarct. Pneumonia could appear similarly. 3. No lymphadenopathy. 4. Hepatic steatosis. 5. Postoperative changes with bilateral breast implants in place. No postoperative fluid collections. 6. Additional findings as above. ACT 112: Negative or not required by law. Electronically signed by: Rivera Elam M.D. 08/07/2023 2:26 PM Discharge Plan Visit Data Chief Complaint: Shortness of Breath/Dyspnea Stated Complaint: SOB AND PAIN AFTER PROCEDURE ED Provider: Tegan Johns Discharge Problem: Chest pain, Pulmonary emboli, Shortness of breath Forms Stand Alone Forms: My [employer] Prescriptions Prescriptions: No Action levothyroxine 50 mcg tablet 50 mcg PO DAILYBB Qty: 90 3RF sertraline 100 mg tablet 150 mg PO HS Qty: 135 0RF buspirone 15 mg tablet 15 mg PO HS Qty: 90 0RF tramadol 50 mg tablet 50 mg PO Q6H PRN (Reason: pain) 3 Days Qty: 10 0RF Rx Instructions: Initial therapy. cyclobenzaprine 5 mg tablet 5 mg PO TID PRN (Reason: muscle spasm) Qty: 20 0RF pravastatin 10 mg tablet 10 mg PO HS Referrals Referrals: Bhaskar Tinsley DO [Primary Care Provider] -
[2023-08-07 11:28] LABS: Basophils # (auto) 0.02 K/uL (0.00-0.20); Basophils % (auto) 0.2 %; Eosinophils # (auto) 0.02 K/uL (0.00-0.50); Eosinophils % (auto) 0.2 %; Hematocrit (blood only) 35.4 % (37.0-47.0); Hemoglobin 11.7 g/dl (12.0-16.0); Immature Granulocytes # (auto) 0.02 K/uL (0.01-0.20); Immature Granulocytes % (auto) 0.2 %; Lymphocytes # (auto) 1.07 K/uL (1.20-3.40); Lymphocytes % (auto) 11.3 %; Mean Corpuscular Hemoglobin 28.5 pg (25.0-34.0); Mean Corpuscular Hgb Conc 33.1 g/dL (32.0-36.0); Mean Corpuscular Volume 86.3 fL (80.0-100.0); Mean Platelet Volume 10.3 fL (9.4-12.4); Monocytes # (auto) 0.87 K/uL (0.11-0.59); Monocytes % (auto) 9.2 %; Neutrophils # (auto) 7.44 K/uL (1.40-6.50); Neutrophils % (auto) 78.9 %; Platelet Count 314 K/uL (130-400); RDW Coefficient of Variation 13.3 % (11.5-14.5); RDW Standard Deviation 41.8 fL (36.4-46.3); White Blood Count 9.44 K/ul (4.8-10.8)
[2023-08-07 11:50] LABS: Appearance Urine Clear (Clear); Bacteria Urine Automated None Seen (None Seen); Bilirubin Urine Negative (Negative); Blood Urine Negative (Negative); Cast Urine Automated 0-2 /lpf (0-2); Color Urine Yellow; Glucose Urine UA Negative (Negative); Ketones Urine Negative (Negative); Leukocyte Esterase Urine 1+ (Negative); Nitrite Urine Negative (Negative); Protein Urine Negative (Negative); RBC Urine Automated 0-2 /hpf (0-2); Specific Gravity Urine 1.017 (1.000-1.030); Urobilinogen Urine Negative (Negative); WBC Urine Automated 0-5 /hpf (0-5)
[2023-08-07 11:51] LABS: Albumin Globulin Ratio 1.1 (0.9-2); BUN Creatinine Ratio 18.2 (10-20); Bilirubin,Total 0.5 mg/dl (0.2-1.0); Calcium 9.6 mg/dl (8.6-10.3); Creatinine Clr Calc Pharmacy 162.5 ml/min; Est GFR (African American) 134.1 ml/min; Est GFR (Non-African American) 115.7 ml/min; Globulin 3.7 gm/dl (2.5-4.0); Magnesium 1.9 mg/dl (1.7-2.4); Potassium 3.8 mmol/L (3.5-5.1); Total Protein 7.7 gm/dl (6.0-8.3)
[2023-08-07 11:53] LABS: Troponin I High Sensitivity 11.3 pg/ml (0-14)
--- NOTE | 2023-08-07 11:56 | XRay Report ---
XR chest 1V portable CLINICAL HISTORY: Dyspnea TECHNIQUE: Single frontal radiograph of the chest was obtained. Comparison: Comparison is made to chest radiograph 01/08/2015 FINDINGS: No lines and tubes are seen. The cardiomediastinal silhouette is normal. Lungs are underinflated but clear. No evidence of pleural effusion or pneumothorax. IMPRESSION: Atelectasis without acute abnormality. ACT 112: Negative or not required by law. Electronically signed by: Joni Sullivan M.D. 08/07/2023 11:55 AM
[2023-08-07 12:00] LABS: Prothrombin Time 10.9 Seconds (9.0-12.0)
[2023-08-07] MEDS: OPTIRAY 320 100ml IV ONE (13:51)
--- NOTE | 2023-08-07 14:26 | Electrocardiogram Report ---
Test Reason : Blood Pressure : / mmHG Vent. Rate : 098 BPM Atrial Rate : 098 BPM P-R Int : 186 ms QRS Dur : 084 ms QT Int : 378 ms P-R-T Axes : 038 008 035 degrees QTc Int : 482 ms Normal sinus rhythm No previous ECGs available Confirmed by Sher Meek ([id number]) on 08/07/2023 2:25:46 PM Referred By: REFERRED SELF Confirmed By:Tripp Meek
--- NOTE | 2023-08-07 14:28 | CT Scan Report ---
CHEST CT WITH CONTRAST CT DOSE: 843.35 mGy.cm HISTORY: Right-sided chest pain with recent breast reconstruction recent breast implant manipulation ; right CP TECHNIQUE: Multiaxial CT images of the chest were performed following the IV administration of 95 cc of Optiray. A dose lowering technique was utilized adhering to the principles of ALARA. COMPARISON: Chest radiograph of same day FINDINGS: Unremarkable thyroid. No pathologically enlarged lymph nodes. Is upper limits of normal in size. No pericardial effusion. Unremarkable thoracic aorta. Suboptimal evaluation of the pulmonary ar terial tree secondary to phase of contrast. Pulmonary emboli are noted, most pronounced within the se gmental and subsegmental branches of the right lower lobe, image 101 series 4. No saddle pulmonary em bolus. There is mild straightening of the intraventricular septum. Trace pleural effusions with bibasilar consolidative densities extending to the pleural margins. No p neumothorax or overt pulmonary edema. No suspicious pulmonary nodules or masses. Central airways are patent. Hepatomegaly with hepatic steatosis. Bilateral breast implants/tissue expanders noted within a subpec leoncio distribution. Subcutaneous and deep tissue edema with skin thickening and subcutaneous emphysem a. No postoperative fluid collections. No acute fracture. Likely benign sclerotic focus of the left c lavicular head. Streak artifact from the tissue expanders limits the study. Study is also limited sec ondary to respiratory motion. IMPRESSION: 1. Limited exam as above. Pulmonary emboli with suggestion of associated right heart strain. 2. Trace pleural effusions with bibasilar consolidation suggestive of admixture of atelectasis with p robable right lower lobe pulmonary infarct. Pneumonia could appear similarly. 3. No lymphadenopathy. 4. Hepatic steatosis. 5. Postoperative changes with bilateral breast implants in place. No postoperative fluid collections. 6. Additional findings as above. ACT 112: Negative or not required by law. Electronically signed by: Rivera Elam M.D. 08/07/2023 2:26 PM
[2023-08-07] MEDS: HYDROmorphone INJ 0.5 MG/0.5 ML SYR IV STA (14:50)
[2023-08-07 14:59] LABS: Partial Thromboplastin Ratio 1.1; Partial Thromboplastin Time 29 Seconds (21-31)
[2023-08-07] MEDS: HEPARIN SOD (PORCINE) 1000 UNIT/ML IV ONE (15:07)
[2023-08-07] MEDS: HEPARIN SODIUM/DEXTROSE 25,000 UNITS/500 ML BAG IV SCH (15:07)
--- NOTE | 2023-08-07 15:26 | History & Physical Report ---
Date of Service August 07, 2023 Assessment & Plan (1) Pulmonary emboli: Plan: Limited CT due to not dedicated pulmonary artery angio but no saddle embolus noted Provoked from recent surgery Troponin negative, TTE ordered PESI score 92, Class III intermediate risk IV heparin Significant pulmonary infarct on imaging - need for good pain control with incentive spirometer No fever, chills, WBC to suggest need for current antibiotics (2) Pulmonary infarct: (3) Depression with anxiety: Plan: Continue sertraline (4) Hypothyroidism: Plan: TSH 2.732 in January Continue levothyroxine Plan VTE Prophylaxis - IV heparin Diet - regular Disposition - admit to PCU Admission and Anticipated Discharge Date Admission Date: August 07, 2023 History of Present Illness Chief Complaint: Right sided chest pain Primary Care Provider: DO Jayna Morales Gal is a 43 year old who presents to the ER with right sided chest pain and shortness of breath. She underwent bilateral mastectomy on July 14 with breast colorer hides and skins reconstruction given significant family history of breast cancer and prior DCIS requiring lumpectomy and radiation. No prior PE or DVT. She reports 2-3 days of shortness of breath on exertion. Right sided chest pain on inspiration started yesterday radiating to her shoulder. Much worse today therefore decided to come to the ER. Current severity 5/10, sharp, worse on deep inspiration, radiating to right shoulder. She denies any pain or swelling in her legs. Recently on Keflex post operatively which she finished yesterday. Allergies Allergy/AdvReac Type Severity Reaction Status Date / Time chlorpheniramine Allergy Unknown LOOPY Verified 08/07/23 13:07 [From Aller-Chlor DEPRESSIVE Decongestant] STATE pseudoephedrine Allergy Unknown LOOPY Verified 08/07/23 13:07 [From Aller-Chlor DEPRESSIVE Decongestant] STATE Home Medications Medication Instructions Recorded Confirmed Type levothyroxine 50 mcg tablet 50 mcg PO DAILYBB #90 tabs 06/21/23 08/07/23 Rx pravastatin 10 mg tablet 10 mg PO HS 06/30/23 08/07/23 History buspirone 15 mg tablet 15 mg PO HS #90 tabs 07/02/23 08/07/23 Rx sertraline 100 mg tablet 150 mg (1.5 x 100 mg) PO HS #135 07/02/23 08/07/23 Rx tabs cyclobenzaprine 5 mg tablet 5 mg PO TID PRN muscle spasm #20 07/17/23 08/07/23 Rx tabs tramadol 50 mg tablet 50 mg PO Q6H PRN pain 3 days #10 08/05/23 08/07/23 Rx tabs Past Med/Surg History Problem List (Updated 08/08/23 @ 06:39 by Kareem King MD) Pulmonary infarct Shortness of breath (Acute) Pulmonary emboli (Acute) Chest pain (Acute) Encounter for breast reconstruction following mastectomy Papilloma of left breast Facial lesion Leukopenia 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) Depression with anxiety (Chronic) Hypothyroidism (Chronic) Mitral valve disorder (Chronic) Hyperlipidemia (Chronic) Diet controlled per 05/2021 PCP note Medical History (Updated 08/08/23 @ 06:39 by Kareem King MD) ADD (attention deficit disorder) Kidney stones passed on own Hiatal hernia Hypothyroidism Atypical ductal hyperplasia of right breast MVP (mitral valve prolapse) no cardio > No murmur noted at 05/2021 PCP appt Depression with anxiety Abnormal menstrual cycle Premenopausal per 06/2021 NURSE ASSISTANT note Surgical History (Updated 07/31/23 @ 00:09 by Kitty Richter) H/O bilateral mastectomy (07/15/23) Bilateral Breast Mastectomy - Reji Beasley DO History of lumpectomy of right breast H/O right breast biopsy (11/06/21) Right Breast Biopsy with Needle Localization - Reji Beasley DO History of lumpectomy of left breast (2016) 2012 History of colonoscopy H/O oral surgery WISDOM TEETH S/P fine needle aspiration (2009) Left Breast Family History (Updated 07/30/23 @ 11:02 by Jayde Gonzalez RN) Grandmother (Paternal) Breast cancer BRCA 1 positive Diabetes Aunt , Passed age 31 Breast cancer, Onset Age: 28 BRCA 1 positive, bilateral masectomy, chemo, radiation Father Diabetes Depression Hypertension Heart disease Mother Hypertension Diabetes Cancer Stroke Unknown Breast cancer, Onset Age: 26 BRCA 1 positive, bilateral masectomy, chemo, radiation Aunt Breast cancer, Onset Age: 42 BRCA 1 positive, diagnosed at 42 as DCIS - 6 years later path revealed actualy invasive BC, bilateral masectomy Aunt Breast cancer, Onset Age: 44 BRCA 1 negative, DCIS, radiation and hormonal therapy Daughter No problems noted. Son No problems noted. Brother Cancer Other Ovarian cancer Denies family history of Colorectal cancer Social History (Updated 07/30/23 @ 11:03 by Jayde Gonzalez RN) Smoking Status: Never smoker Second Hand Exposure: Yes (as child); Do You Dip or Chew Tobacco: No; Hx Alcohol Use: No Hx Substance Use: No Preferred Language: Bhutanese Communication Ability: Effective Visual Impairment: No Limitations Hearing Ability: Normal Publications Manager Required: No Beliefs That Will Affect Care: None marital status: Current Living Situation: Spouse current occupational status: employed current occupation: works from home How many Children do You have: 2 Other Information That Helps Us Care for You: No Feels Safe at Home: Yes Safety Concerns: Feels Safe At This Time Childhood Exposure to Second-Hand Smoke: No Diet: regular caffeine: Yes during the past year weight has: increased > 10 lbs Dental Care, Regularly: Yes Assistive Devices: None Review of Systems Review of Systems: All systems reviewed & are unremarkable except as noted in HPI & below Physical Exam Constitutional: WD/WN, vitals as above Eyes: PERRL, conjunctivae normal, anicteric sclerae ENMT: external ear and nose normal, oropharynx normal Neck: trachea midline, no thyromegaly Respiratory: normal respiratory effort, lungs clear to auscultation Cardiovascular: Rate/Rhythm: regular rhythm and + tachycardic Heart Sounds: no murmur Extremities: normal capillary refill; no calf tenderness and no pedal edema Gastrointestinal (Abdomen): normal bowel sounds, soft, nontender, no hepatosplenomegaly Musculoskeletal: no cyanosis or clubbing, extremities motor strength 5/5 Skin: no rashes, warm and dry Neurologic: moves all extremities and awake; not confused Psychiatric: A+Ox3, euthymic affect Genitourinary: no CVA tenderness Results & Data Results & Data Vital Signs (Past 12 Hours) Vital Signs Temp Pulse Pulse Resp BP BP Pulse Ox 08/07/23 14:49 100 H 23 120/72 95 08/07/23 14:23 124/75 08/07/23 14:23 96 H 32 H 96 08/07/23 14:00 96 H 22 94 08/07/23 13:30 96 H 30 H 136/77 95 08/07/23 13:00 92 H 21 95 08/07/23 12:30 98 H 24 94 08/07/23 12:21 91 H 08/07/23 12:00 92 H 20 95 08/07/23 11:30 94 H 22 95 08/07/23 11:00 96 H 113/76 08/07/23 11:00 26 H 97 08/07/23 10:56 98 H 29 H 96 08/07/23 10:44 96 H 22 98 08/07/23 10:38 36.3 C L 106 H 18 125/71 95 08/07/23 10:37 98 08/07/23 10:37 O2 Del Method 08/07/23 14:49 Room Air 08/07/23 14:23 08/07/23 14:23 08/07/23 14:00 08/07/23 13:30 08/07/23 13:00 08/07/23 12:30 08/07/23 12:21 08/07/23 12:00 08/07/23 11:30 08/07/23 11:00 08/07/23 11:00 08/07/23 10:56 08/07/23 10:44 Room Air 08/07/23 10:38 Room Air 08/07/23 10:37 Room Air 08/07/23 10:37 Room Air Laboratory Results Abnormal lab results 08/07/23 08/07/23 Range/Units 11:11 11:20 RBC 4.10 L (4.20-5.40) M/uL Hgb 11.7 L (12.0-16.0) g/dl Hct 35.4 L (37.0-47.0) % Neut # (Auto) 7.44 H (1.40-6.50) K/uL Lymph # (Auto) 1.07 L (1.20-3.40) K/uL [place] # (Auto) 0.87 H (0.11-0.59) K/uL Creatinine 0.55 L (0.6-1.2) mg/dl Glucose 116 H (70-99(Fasting)) mg/dl Ur Leukocyte Esterase 1+ H (Negative) U Epithel Cells (Auto) 6-10 H (0-2) /hpf Diagnostic Findings CHEST CT WITH CONTRAST CT DOSE: 843.35 mGy.cm HISTORY: Right-sided chest pain with recent breast reconstruction recent breast implant manipulation; right CP TECHNIQUE: Multiaxial CT images of the chest were performed following the IV administration of 95 cc of Optiray. A dose lowering technique was utilized adhering to the principles of ALARA. COMPARISON: Chest radiograph of same day FINDINGS: Unremarkable thyroid. No pathologically enlarged lymph nodes. Is upper limits of normal in size. No pericardial effusion. Unremarkable thoracic aorta. Suboptimal evaluation of the pulmonary arterial tree secondary to phase of contrast. Pulmonary emboli are noted, most pronounced within the segmental and subsegmental branches of the right lower lobe, image 101 series 4. No saddle pulmonary embolus. There is mild straightening of the intraventricular septum. Trace pleural effusions with bibasilar consolidative densities extending to the pleural margins. No pneumothorax or overt pulmonary edema. No suspicious pulmonary nodules or masses. Central airways are patent. Hepatomegaly with hepatic steatosis. Bilateral breast implants/tissue expanders noted within a subpectoral distribution. Subcutaneous and deep tissue edema with skin thickening and subcutaneous emphysema. No postoperative fluid collections. No acute fracture. Likely benign sclerotic focus of the left clavicular head. Streak artifact from the tissue expanders limits the study. Study is also limited secondary to respiratory motion. IMPRESSION: 1. Limited exam as above. Pulmonary emboli with suggestion of associated right heart strain. 2. Trace pleural effusions with bibasilar consolidation suggestive of admixture of atelectasis with probable right lower lobe pulmonary infarct. Pneumonia could appear similarly. 3. No lymphadenopathy. 4. Hepatic steatosis. 5. Postoperative changes with bilateral breast implants in place. No postoperative fluid collections. 6. Additional findings as above. Medications Administered ER Medications Given: IV heparin standard IV bolus and drip Dilaudid 0.5mg IV ECG Rate (beats per minute): 98 Rhythm: normal sinus Findings: no acute ischemic change Comparison ECG Date: no prior available Code Status & VTE Plan Code Status Full VTE Prophylaxis Plan VTE Prophylaxis will be ordered: Yes PG Care Time/CCT Total # of Minutes Spent Total Time Spent with Patient: Total time spent is greater than 50% in coordination of care (as documented) at patient's floor/unit and/or counseling patient: Coding Level of Care Code 52177 INT INP/OBS CARE 3/75MIN Diagnoses Pulmonary emboli I26.99 Pulmonary infarct I26.99 Depression with anxiety F41.8 Hypothyroidism E03.9
[2023-08-07] MEDS: Heparin IV Adult Wt-Based Standard w/ INITIAL Bolus Protocol IV STA (15:35)
[2023-08-07] MEDS ORDERED: HYDROmorphone INJ 0.5 MG/0.5 ML SYR IV PRN (17:02)
[2023-08-07] MEDS ORDERED: ONDANSETRON INJ 2 MG/ML 2 ML VIAL IV PRN (17:02)
[2023-08-07] MEDS: oxyCODONE HCL IR 5 MG TAB (IMMEDIATE RELEASE) PO PRN ×2 (17:21→21:41)
[2023-08-07] MEDS: HYDROmorphone INJ 0.5 MG/0.5 ML SYR IV PRN (17:28)
[2023-08-07] MEDS: SERTRALINE HCL 50 MG TABLET PO SCH (20:32)
[2023-08-07] MEDS: PRAVASTATIN SOD 10 MG TAB PO SCH (20:32)
[2023-08-07] MEDS: busPIRone 15 MG TAB PO SCH (20:33)
[2023-08-07 22:01] LABS: ANTI-Xa, UFH(UnfractionatedHep 0.32 IU/ml (0.3-0.7)
[2023-08-08] MEDS ORDERED: ALBUT/IPRATROP 3MG/0.5MG NEB 3 ML VIAL NEB PRN (02:39)
[2023-08-08] MEDS ORDERED: HYDROmorphone INJ 0.5 MG/0.5 ML SYR IV PRN (02:44)
[2023-08-08] MEDS: FUROSEMIDE 40 MG/4 ML VIAL IV ONE (02:56)
[2023-08-08] MEDS: ALBUT/IPRATROP 3MG/0.5MG NEB 3 ML VIAL NEB STA (03:07)
--- NOTE | 2023-08-08 03:15 | Communication Note ---
Date of Service: August 08, 2023 Notified by nursing that patient awoke to sudden new severe pain at right side of ribs. Oxygen requirement had increased from 1L to 4L at this time as well. I went to bedside, patient was in notable distress and was seated in recliner. Rib pain was not reproducible with palpation, patient was observed to be breathing more shallow due to pain. Oxygen saturation was upper 90s% while on the 4L. I ordered a chest x-ray which did show a significant change from x-ray in ED, upon reviewing new x-ray and admission CT with attending- decided to start Zosyn for concern of secondary pneumonia as well as a dose of IV Lasix for possible fluid overload in the setting of increased oxygen requirement. PRN duonebs also ordered. Decreased duration of Dilaudid from q3h to q2h due to uncontrolled pain.
[2023-08-08] MEDS: PIPERACILLIN/TAZOBACTAM 4.5 GM in DEXTROSE 5% MINI-B 100 ML IV STA (03:17)
[2023-08-08] MEDS: HYDROmorphone INJ 0.5 MG/0.5 ML SYR IV PRN ×2 (04:36→08:13)
[2023-08-08] MEDS: LEVOTHYROXINE SODIUM 50 MCG TABLET PO SCH (06:06)
[2023-08-08 06:35] LABS: BUN Creatinine Ratio 19.1 (10-20); Calcium 9.4 mg/dl (8.6-10.3); Creatinine Clr Calc Pharmacy 130.9 ml/min; Est GFR (Non-African American) 107.9 ml/min; Potassium 3.3 mmol/L (3.5-5.1)
[2023-08-08 06:36] LABS: ANTI-Xa, UFH(UnfractionatedHep 0.24 IU/ml (0.3-0.7)
[2023-08-08 06:38] LABS: Basophils # (auto) 0.03 K/uL (0.00-0.20); Basophils % (auto) 0.3 %; Eosinophils # (auto) 0.01 K/uL (0.00-0.50); Eosinophils % (auto) 0.1 %; Hematocrit (blood only) 35.3 % (37.0-47.0); Hemoglobin 11.4 g/dl (12.0-16.0); Immature Granulocytes # (auto) 0.02 K/uL (0.01-0.20); Immature Granulocytes % (auto) 0.2 %; Lymphocytes # (auto) 1.08 K/uL (1.20-3.40); Lymphocytes % (auto) 11.8 %; Mean Corpuscular Hgb Conc 32.3 g/dL (32.0-36.0); Mean Corpuscular Volume 86.7 fL (80.0-100.0); Mean Platelet Volume 10.8 fL (9.4-12.4); Monocytes # (auto) 0.92 K/uL (0.11-0.59); Neutrophils # (auto) 7.11 K/uL (1.40-6.50); Neutrophils % (auto) 77.6 %; Platelet Count 321 K/uL (130-400); RDW Coefficient of Variation 13.6 % (11.5-14.5); RDW Standard Deviation 43.3 fL (36.4-46.3); Red Blood Count 4.07 M/uL (4.20-5.40); White Blood Count 9.17 K/ul (4.8-10.8)
--- NOTE | 2023-08-08 07:33 | XRay Report ---
SINGLE VIEW CHEST CLINICAL HISTORY: Dyspnea. Atypical chest pain FINDINGS: An AP, portable, upright chest radiograph is compared to chest x-ray and chest CT dated 07/22. The cardiomediastinal silhouette is unremarkable. There is elevation of the right hemidiaphra gm and bibasilar consolidation. Small pleural effusions are suspected. No pneumothorax is seen. The b bradford thorax is grossly intact. Bilateral breast implants are noted. IMPRESSION: Small pleural effusions with bibasilar consolidation. This is similar to yesterday. ACT 112: Negative or not required by law. Electronically signed by: Nic Wilson M.D. 08/08/2023 7:32 AM
[2023-08-08] MEDS ORDERED: HYDROmorphone INJ 1 MG/ML SYRINGE IV PRN (08:03)
[2023-08-08] MEDS: PIPERACILLIN/TAZOBACTAM 4.5 GM in DEXTROSE 5% MINI-B 100 ML IV SCH (08:08)
[2023-08-08] MEDS: POTASSIUM CHLORIDE CRTAB 20 MEQ TABCR PO ONE (08:08)
[2023-08-08] MEDS ORDERED: NALOXONE HCL 0.4 MG/1 ML VIAL/CARP IV PRN (08:14)
[2023-08-08] MEDS: LIDOCAINE 5% 1 PATCH TD STA ×2 (08:59→12:16)
--- NOTE | 2023-08-08 09:28 | Hospitalist Progress Note ---
Date of Service August 08, 2023 Assessment & Plan (1) Pulmonary emboli: Plan: * Limited CT due to not dedicated pulmonary artery angio but no saddle embolus noted * Provoked from recent mastectomy and breast reconstruction * Troponin negative, TTE ordered * PESI score 92, Class III intermediate risk * Continue IV heparin, switch to DOAC when workup complete * Significant pulmonary infarct on imaging and patient reports severe pain, continue Dilaudid q2h * Narcan prn for respiratory depression/oversedation * New Chest-xray shows small pleural effusion with bibasilar consolidation, unlikely pneumonia, d/c Zosyn (2) Hypokalemia: Plan: * Patient has mild hypokalemia, will replete potassium with a goal of 4 * Recheck in am (3) Normocytic anemia: Plan: * Patient has a mild normocytic anemia secondary to PE with right heart strain * Continue to monitor (4) Depression with anxiety: Plan: * Continue sertraline (5) Hypothyroidism: Plan: * TSH 2.732 in January * Continue levothyroxine (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 Rodriguez, [facility] Dr. Cooney. In agreement with the documented findings as noted in the resident documentation with any exceptions or additions as noted here. Intermittent RUQ abdominal pain similar to right chest pain and back pain which occurs with deep inspiration and improves w/ dilaudid. Endorses considerable anxiety with accompanying sx. Tolerating new medications well. On examination, S1/S2 nl RRR no MCG. CTAB. Abd NT/ND BS+ve Postoperative pulmonary emboli with AHRF - continue anticoagulation and transition to DOAC tomorrow. Escalate pain control to 0.5/1mg dilaudid with pain scale. Consider addition of small dose of lorazepam to support anxiety from sx. Likely no PNA in the setting of afebrile without elevated WBC and w/ R heart strain, so d/c abx therapy and monitor. O2 per protocol. Hypokalemia - replete, check BMP daily Mild normocytic anemia - likely dilutional - continue daily CBC Else see student/resident documentation as noted. Subjective Today, Patient reports feeling better with the pain more controlled now that her Dilaudid dosage is increased and the interval between dosages is decreased. She reports shortness of breath but being on oxygen is helping. She states that she is uncomfortable anytime she moves, and although the pain is currently controlled, when it does occur she has right sided chest pain that radiates to her right shoulder with a shooting pain down to her right middle abdominal quadrant near her ribs.She denies fevers, chills, nausea, vomiting, and abdominal pain. Review of Systems Review of Systems: All systems reviewed & are unremarkable except as noted in HPI & below. Physical Exam Physical Exam: General: awake, alert, no acute distress Head: Normocephalic, atraumatic ENT: PERRL, EOMI, neck supple; no lymphadenopathy Neuro: alert and oriented x3; normal mood and affect; normal speech CV: RRR; S1/S2 normal; no murmurs, rubs, gallops; normal capillary refill; no calf tenderness and no pedal edema Lungs: clear to auscultation; no acute respiratory distress; symmetrical chest wall expansion; no wheezing GI: normal bowel sounds present; Soft; nondistended; no ascites; no rebound/guarding : no CVA tenderness Skin: no rashes, warm and dry Psych: Normal mood and affect Results & Data Results & Data Vital Signs (Past 12 Hours) Vital Signs Temp Pulse Pulse Resp BP Pulse Ox Pulse Ox 08/08/23 08:00 36.6 C 107 H 30 H 107/75 94 08/08/23 06:11 96 08/08/23 04:10 95 08/08/23 03:08 91 H 22 97 08/08/23 02:10 90 08/08/23 02:00 36.5 C 98 H 22 125/75 93 08/08/23 00:13 78 08/07/23 23:25 36.4 C L 87 18 111/72 97 08/07/23 22:00 O2 Del Method O2 Del Method O2 Flow Rate O2 Flow Rate 08/08/23 08:00 Oxymask 6 08/08/23 06:11 Nasal Cannula 3 08/08/23 04:10 Nasal Cannula 5 08/08/23 03:08 Oxymask 5 08/08/23 02:10 Oxymask 5 08/08/23 02:00 Oxymask 4 08/08/23 00:13 08/07/23 23:25 Nasal Cannula 1 08/07/23 22:00 Nasal Cannula 1 Laboratory Results 08/08/23 08/07/23 08/07/23 05:20 Unknown 21:14 WBC 9.17 RBC 4.07 L Hgb 11.4 L Hct 35.3 L MCV 86.7 MCH 28.0 MCHC 32.3 RDW Std Deviation 43.3 RDW Coeff of Joie 13.6 Plt Count 321 MPV 10.8 Immature Gran % (Auto) 0.2 Neut % (Auto) 77.6 Lymph % (Auto) 11.8 [place] % (Auto) 10.0 Eos % (Auto) 0.1 Baso % (Auto) 0.3 Neut # (Auto) 7.11 H Lymph # (Auto) 1.08 L [place] # (Auto) 0.92 H Eos # (Auto) 0.01 Baso # (Auto) 0.03 Immature Gran # (Auto) 0.02 PT INR APTT PTT Ratio Heparin Anti-Xa, Unfract 0.24 L 0.32 Sodium 135 L Potassium 3.3 L Chloride 99 Carbon Dioxide 25 Anion Gap 11 BUN 13 Creatinine 0.68 Est Cr Clr Drug Dosing 130.9 Est GFR ( Amer) 125.0 Est GFR (Non-Af Amer) 107.9 BUN/Creatinine Ratio 19.1 Glucose 131 H Calcium 9.4 Magnesium Total Bilirubin AST ALT Alkaline Phosphatase Troponin I High Sens B-Natriuretic Peptide Total Protein Albumin Globulin Albumin/Globulin Ratio Urine Color Urine Appearance Urine pH Ur Specific [place] Urine Protein Urine Glucose (UA) Urine Ketones Urine Blood Urine Nitrite Urine Bilirubin Urine Urobilinogen Ur Leukocyte Esterase Urine WBC (Auto) Urine RBC (Auto) U Hyaline Cast (Auto) U Epithel Cells (Auto) Urine Bacteria (Auto) SARS-CoV-2 (PCR) NEGATIVE 08/07/23 08/07/23 11:20 11:11 WBC 9.44 RBC 4.10 L Hgb 11.7 L Hct 35.4 L MCV 86.3 MCH 28.5 MCHC 33.1 RDW Std Deviation 41.8 RDW Coeff of Joie 13.3 Plt Count 314 MPV 10.3 Immature Gran % (Auto) 0.2 Neut % (Auto) 78.9 Lymph % (Auto) 11.3 [place] % (Auto) 9.2 Eos % (Auto) 0.2 Baso % (Auto) 0.2 Neut # (Auto) 7.44 H Lymph # (Auto) 1.07 L [place] # (Auto) 0.87 H Eos # (Auto) 0.02 Baso # (Auto) 0.02 Immature Gran # (Auto) 0.02 PT 10.9 INR 1.0 APTT 29 PTT Ratio 1.1 Heparin Anti-Xa, Unfract Sodium 137 Potassium 3.8 Chloride 103 Carbon Dioxide 25 Anion Gap 9 BUN 10 Creatinine 0.55 L Est Cr Clr Drug Dosing 162.5 Est GFR ( Amer) 134.1 Est GFR (Non-Af Amer) 115.7 BUN/Creatinine Ratio 18.2 Glucose 116 H Calcium 9.6 Magnesium 1.9 Total Bilirubin 0.5 AST 19 ALT 14 Alkaline Phosphatase 94 Troponin I High Sens 11.3 B-Natriuretic Peptide 14 Total Protein 7.7 Albumin 4.0 Globulin 3.7 Albumin/Globulin Ratio 1.1 Urine Color Yellow Urine Appearance Clear Urine pH 7.0 Ur Specific [place] 1.017 Urine Protein Negative Urine Glucose (UA) Negative Urine Ketones Negative Urine Blood Negative Urine Nitrite Negative Urine Bilirubin Negative Urine Urobilinogen Negative Ur Leukocyte Esterase 1+ H Urine WBC (Auto) 0-5 Urine RBC (Auto) 0-2 U Hyaline Cast (Auto) 0-2 U Epithel Cells (Auto) 6-10 H Urine Bacteria (Auto) None Seen SARS-CoV-2 (PCR) Diagnostic Findings Chest X-Ray 08/07/23 10:44 XR chest 1V portable CLINICAL HISTORY: Dyspnea TECHNIQUE: Single frontal radiograph of the chest was obtained. Comparison: Comparison is made to chest radiograph 01/08/2015 FINDINGS: No lines and tubes are seen. The cardiomediastinal silhouette is normal. Lungs are underinflated but clear. No evidence of pleural effusion or pneumothorax. IMPRESSION: Atelectasis without acute abnormality. ACT 112: Negative or not required by law. Electronically signed by: Joni Sullivan M.D. 08/07/2023 11:[address] 08/07/23 13:[address] WITH CONTRAST CT DOSE: 843.35 mGy.cm HISTORY: Right-sided chest pain with recent breast reconstruction recent breast implant manipulation; right CP TECHNIQUE: Multiaxial CT images of the chest were performed following the IV administration of 95 cc of Optiray. A dose lowering technique was utilized adhering to the principles of ALARA. COMPARISON: Chest radiograph of same day FINDINGS: Unremarkable thyroid. No pathologically enlarged lymph nodes. Is upper limits of normal in size. No pericardial effusion. Unremarkable thoracic aorta. Suboptimal evaluation of the pulmonary arterial tree secondary to phase of contrast. Pulmonary emboli are noted, most pronounced within the segmental and subsegmental branches of the right lower lobe, image 101 series 4. No saddle pulmonary embolus. There is mild straightening of the intraventricular septum. Trace pleural effusions with bibasilar consolidative densities extending to the pleural margins. No pneumothorax or overt pulmonary edema. No suspicious pulmonary nodules or masses. Central airways are patent. Hepatomegaly with hepatic steatosis. Bilateral breast implants/tissue expanders noted within a subpectoral distribution. Subcutaneous and deep tissue edema with skin thickening and subcutaneous emphysema. No postoperative fluid collections. No acute fracture. Likely benign sclerotic focus of the left clavicular head. Streak artifact from the tissue expanders limits the study. Study is also limited secondary to respiratory motion. IMPRESSION: 1. Limited exam as above. Pulmonary emboli with suggestion of associated right heart strain. 2. Trace pleural effusions with bibasilar consolidation suggestive of admixture of atelectasis with probable right lower lobe pulmonary infarct. Pneumonia could appear similarly. 3. No lymphadenopathy. 4. Hepatic steatosis. 5. Postoperative changes with bilateral breast implants in place. No postoperative fluid collections. 6. Additional findings as above. ACT 112: Negative or not required by law. Electronically signed by: Rivera Elam M.D. 08/07/2023 2:26 PM Chest X-Ray 08/08/23 02:22 SINGLE VIEW CHEST CLINICAL HISTORY: Dyspnea. Atypical chest pain FINDINGS: An AP, portable, upright chest radiograph is compared to chest x-ray and chest CT dated 08/07/2023. The cardiomediastinal silhouette is unremarkable. There is elevation of the right hemidiaphragm and bibasilar consolidation. Small pleural effusions are suspected. No pneumothorax is seen. The bony thorax is grossly intact. Bilateral breast implants are noted. IMPRESSION: Small pleural effusions with bibasilar consolidation. This is similar to yesterday. ACT 112: Negative or not required by law. Electronically signed by: Nic Wilson M.D. 08/08/2023 7:32 AM
--- NOTE | 2023-08-08 11:07 | XCELERA ---
[id number]
--- NOTE | 2023-08-08 11:26 | Ultrasound Report ---
ULTRASOUND BILATERAL LOWER EXTREMITY VENOUS CLINICAL HISTORY: Pulmonary embolus. COMPARISON STUDY: No priors. TECHNIQUE: Portable real-time grayscale and color Doppler sonography of the deep veins of the right a nd left lower extremity was performed from the inguinal crease to the calf. Compression and augmentat ion were utilized. FINDINGS: There is no sonographic evidence of deep venous thrombosis identified in the right or left lower extremity. The common femoral, superficial femoral, and popliteal veins are patent and normally compressible bilaterally. The greater saphenous vein and the profunda femoris vein at the junction w ith the common femoral vein are clear in both legs. The visualized calf veins are patent bilaterally. IMPRESSION: There is no sonographic evidence of deep venous thrombosis identified in the right or lef t lower extremity. ACT 112: Negative or not required by law. Electronically signed by: Nic Wilson M.D. 08/08/2023 11:25 AM
[2023-08-08 12:53] LABS: ANTI-Xa, UFH(UnfractionatedHep 0.22 IU/ml (0.3-0.7)
[2023-08-08] MEDS: LORazepam 0.5 MG in SYRINGE 0.25 ML IV STA (14:03)
[2023-08-08] MEDS: BACITRACIN OINT 14 GM TUBE EXT SCH (15:07)
[2023-08-08] MEDS: ACETAMINOPHEN 500 MG TAB PO PRN (19:20)
[2023-08-08] MEDS: CYCLOBENZAPRINE HCL 5 MG TAB PO PRN (19:21)
[2023-08-08 19:42] LABS: ANTI-Xa, UFH(UnfractionatedHep 0.22 IU/ml (0.3-0.7)
[2023-08-09 02:55] LABS: ANTI-Xa, UFH(UnfractionatedHep 0.29 IU/ml (0.3-0.7)
[2023-08-09] MEDS: DOCUSATE SODIUM 100 MG CAP PO PRN (07:49)
[2023-08-09 08:34] LABS: Hematocrit (blood only) 34.5 % (37.0-47.0); Hemoglobin 11.2 g/dl (12.0-16.0); Mean Corpuscular Hemoglobin 28.5 pg (25.0-34.0); Mean Corpuscular Hgb Conc 32.5 g/dL (32.0-36.0); Mean Corpuscular Volume 87.8 fL (80.0-100.0); Mean Platelet Volume 10.4 fL (9.4-12.4); Platelet Count 298 K/uL (130-400); RDW Coefficient of Variation 13.5 % (11.5-14.5); RDW Standard Deviation 43.4 fL (36.4-46.3); Red Blood Count 3.93 M/uL (4.20-5.40)
[2023-08-09 08:52] LABS: BUN Creatinine Ratio 21.9 (10-20); Calcium 9.6 mg/dl (8.6-10.3); Creatinine Clr Calc Pharmacy 138.9 ml/min; Est GFR (African American) 127.6 ml/min; Est GFR (Non-African American) 110.1 ml/min; Potassium 3.8 mmol/L (3.5-5.1)
[2023-08-09 08:57] LABS: ANTI-Xa, UFH(UnfractionatedHep 0.36 IU/ml (0.3-0.7)
--- NOTE | 2023-08-09 09:13 | Discharge Summary ---
Date of Service August 09, 2023 Admission HPI Per Admitting Provider Jayna Santo is a 43 year old who presents to the ER with right sided chest pain and shortness of breath. She underwent bilateral mastectomy on July 14 with breast umbrella tipper hand reconstruction given significant family history of breast cancer and prior DCIS requiring lumpectomy and radiation. No prior PE or DVT. She reports 2-3 days of shortness of breath on exertion. Right sided chest pain on inspiration started yesterday radiating to her shoulder. Much worse today therefore decided to come to the ER. Current severity 5/10, sharp, worse on deep inspiration, radiating to right shoulder. She denies any pain or swelling in her legs. Recently on Keflex post operatively which she finished yesterday. Admission Exam Per Admitting Provider Constitutional: WD/WN, vitals as above Eyes: PERRL, conjunctivae normal, anicteric sclerae ENMT: external ear and nose normal, oropharynx normal Neck: trachea midline, no thyromegaly Respiratory: normal respiratory effort, lungs clear to auscultation Cardiovascular: Rate/Rhythm: regular rhythm and + tachycardic Heart Sounds: no murmur Extremities: normal capillary refill; no calf tenderness and no pedal edema Gastrointestinal (Abdomen): normal bowel sounds, soft, nontender, no hepatosplenomegaly Musculoskeletal: no cyanosis or clubbing, extremities motor strength 5/5 Skin: no rashes, warm and dry Neurologic: moves all extremities and awake; not confused Psychiatric: A+Ox3, euthymic affect Genitourinary: no CVA tenderness Principal Diagnosis Pulmonary embolism Discharge Exam General: awake, alert, no acute distress Head: Normocephalic, atraumatic Neuro: normal mood and affect; normal speech CV: RRR; S1/S2 normal; no murmurs, rubs, gallops; normal capillary refill Lungs: clear to auscultation; no acute respiratory distress; symmetrical chest wall expansion; no wheezing GI: Soft; nondistended; no ascites; no rebound/guarding Skin: no rashes, warm and dry Discharge Data Allergies Allergy/AdvReac Type Severity Reaction Status Date / Time chlorpheniramine Allergy Unknown LOOPY Verified 08/07/23 13:07 [From Aller-Chlor DEPRESSIVE Decongestant] STATE pseudoephedrine Allergy Unknown LOOPY Verified 08/07/23 13:07 [From Aller-Chlor DEPRESSIVE Decongestant] STATE Consultations 08/07/23 14:41 ED Decision to Admit Stat Ordered Studies 08/07/23 13:06 CT chest diagnostic w con Stat 08/08/23 06:41 US venous doppler LE BI Routine Hospital Course (1) Pulmonary emboli: * Limited CT due to not dedicated pulmonary artery angiography but no saddle embolus noted * CXR on 08/06 demonstrating small pleural effusion w/ bibasilar consolidations, low concern for pneumonia and hence Zosyn from admission discontinued on 08/06 * Provoked PE from recent mastectomy and breast reconstruction * Troponin negative, TTE wnl * PESI score 92, Class III intermediate risk * Heparin switched to Eliquis on 08/08, 10 mg BID x7 days then 5 mg BID afterward for minimum of 3 months * Pain control- discharged with short course of oxycodone 5 mg q6h PRN x 5 days (2) Hypokalemia: * Mild hypokalemia noted during stay * Stable s/p repletion by time of discharge (3) Normocytic anemia: * Patient has a mild normocytic anemia secondary to PE with right heart strain * Hgb stable (4) Depression with anxiety: * Continue sertraline (5) Hypothyroidism: * TSH 2.732 in January * Continue levothyroxine (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: * with a strong FHx of breast cancer * s/p b/l mastectomy Total Time Total Time Spent Total Time Spent (In Minutes): 40 Discharge Plan Discharge Items Patient Disposition: Home - Self-Care Reason For Visit: PULMONARY EMBOLI Discharge Diagnosis: Pulmonary embolism Activity: Resume your previous activity Non-emergency contact: Primary Care Provider Call non-emergency contact if: your symptoms worsen Follow-up/Referrals: Bhaskar Tinsley DO [Primary Care Provider] - Diet: Regular Addtl Attending Provider Instructions: You were admitted to the hospital for a blood clot to the lungs which occurred postoperatively from the mastectomy surgery. You were treated with blood thinners. A discharge summary will be sent to your primary care physician to ensure continuity of care. Please bring this discharge summary with you to your next office appointment so that your provider can review it at that time. Follow-up appointments: - Make a follow-up appointment with your PCP within the next week. It is very important that you follow up with them shortly after discharge from the hospital. Medications: Your medication list has been reviewed and reconciled upon discharge to ensure accuracy and continuity of care. An updated list of all your medications is included with your hospital discharge paperwork. Please review this list closely, and make note of any changes. -We sent a new medication called Eliquis to the pharmacy. Take 10 mg (2 tabs) twice daily until Friday, 08/15. Starting on Friday morning 08/16, take 5 mg twice daily. Take your medications as instructed; do not skip a dose of your medicines. Make sure all of your doctors know every medicine you are taking (including cayk-lad-nlvjoci medicines, vitamins, and supplements). Call your primary care provider before taking any new medicines (including scoe-kbp-ljafenv medicines, vitamins, and supplements), because some of these may interact with your current medications, or may make your symptoms worse. Tell your primary care provider if you cannot afford your medications. CALL 911 OR GO TO THE EMERGENCY DEPARTMENT if you experience any of the following: - Sudden, severe abdominal pain or nausea/vomiting - Severe chest pain, or chest pain that radiates (moves) to your jaw or arm - Sudden, severe shortness of breath or difficulty breathing Thank you for allowing us to participate in your care Pending Studies at Discharge: No Stand-Alone Forms: My [facility] Medications and DC Order Prescriptions: New Eliquis 5 mg tablet 5 mg PO BID Qty: 60 1RF Rx Instructions: Take 2 tabs (10 mg) tonight, then 2 tabs (10 mg) twice daily until 08/15. Starting 08/16, take 1 tab (5 mg) twice daily. oxycodone 5 mg tablet 5 mg PO Q6H PRN (Reason: pain) 5 Days Qty: 20 0RF Continued levothyroxine 50 mcg tablet 50 mcg PO DAILYBB Qty: 90 3RF sertraline 100 mg tablet 150 mg PO HS Qty: 135 0RF buspirone 15 mg tablet 15 mg PO HS Qty: 90 0RF tramadol 50 mg tablet 50 mg PO Q6H PRN (Reason: pain) 3 Days Qty: 10 0RF Rx Instructions: Initial therapy. cyclobenzaprine 5 mg tablet 5 mg PO TID PRN (Reason: muscle spasm) Qty: 20 0RF pravastatin 10 mg tablet 10 mg PO HS Discharge Orders: Discharge Order (Routine); Ordered 08/10/23 Ordered By: Jorge Amaral Admission Data Admit Date/Time: 08/07/23 15:38 Attending Provider: Sher Walls Admit Provider: Kareem King Primary Care Provider: Bhaskar Tinsley Other Providers: Kareem King Other Interventions: Discharge Summary Assessment (RN) Last Done: 08/10/23 11:40 Supervising Physician Co-Signing Physician Notes Attending attestation Pt seen and examined in concert with Dr. Amaral. In agreement with the documented findings as noted in the resident documentation with any exceptions or additions as noted here. Improved intermittent RUQ abdominal pain, right chest pain and back pain with deep inspiration. Adequate pain control w/ PO regimen. Ongoing anxiety with accompanying sx. On examination, S1/S2 nl RRR no MCG. CTAB. Abd NT/ND BS+ve Postoperative pulmonary emboli with AHRF - tolerating apixaban without complaint. Will provide oxycodone and pain management instructions as noted. Mild normocytic anemia - hgb stable at 11. Else see resident documentation as noted. Total attending physician time spent with this patient's care on the day of discharge: 34 minutes.
[2023-08-09] MEDS: APIXABAN 5 MG TABLET PO SCH (09:36)
--- NOTE | 2023-08-09 11:08 | Hospitalist Progress Note ---
Date of Service August 09, 2023 Assessment & Plan (1) Pulmonary emboli: Plan: * Limited CT due to not dedicated pulmonary artery angiography but no saddle embolus noted * CXR on 08/06 demonstrating small pleural effusion w/ bibasilar consolidations, low concern for pneumonia and hence Zosyn from admission discontinued on 08/06 * Provoked PE from recent mastectomy and breast reconstruction * Troponin negative, TTE wnl * PESI score 92, Class III intermediate risk * Heparin switched to Eliquis on 08/08, 10 mg BID x7 days then 5 mg BID afterward for minimum of 3 months * Pain control- discontinued Dilaudid, continue oxycodone 10 mg q4h PRN (2) Hypokalemia: Plan: * Patient has mild hypokalemia, will replete potassium with a goal of 4 * Stable s/p repletion * Monitor BMP (3) Normocytic anemia: Plan: * Patient has a mild normocytic anemia secondary to PE with right heart strain * Hgb stable * Monitor CBC (4) Depression with anxiety: Plan: * Continue sertraline (5) Hypothyroidism: Plan: * TSH 2.732 in January * Continue levothyroxine (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 Amaral. In agreement with the documented findings as noted in the resident documentation with any exceptions or additions as noted here. Ongoing intermittent RUQ abdominal pain similar to right chest pain and back pain with deep inspiration. Adequate pain control w/ PO regimen. Ongoing anxiety with accompanying sx. On examination, S1/S2 nl RRR no MCG. CTAB. Abd NT/ND BS+ve Postoperative pulmonary emboli with AHRF - transitioned to DOAC today. Transition to PO oxycodone from IV hydromorphone and try to taper prior to discharge. Mild normocytic anemia - likely dilutional - continue daily CBC Else see student/resident documentation as noted. Subjective Acute events overnight- none. Received Dilaudid 0.5 mg x3 overnight. Pt examined at bedside. Reports her dyspnea is improved and pain is under control with current medication. Review of Systems Review of Systems: Per HPI/Subjective Physical Exam Physical Exam: General: awake, alert, no acute distress Head: Normocephalic, atraumatic Neuro: normal mood and affect; normal speech CV: RRR; S1/S2 normal; no murmurs, rubs, gallops; normal capillary refill Lungs: clear to auscultation; no acute respiratory distress; symmetrical chest wall expansion; no wheezing GI: Soft; nondistended; no ascites; no rebound/guarding Skin: no rashes, warm and dry Results & Data Results & Data Vital Signs (Past 12 Hours) Vital Signs Temp Pulse Pulse Pulse Pulse Pulse Resp 08/09/23 10:27 114 H 115 H 94 H 08/09/23 09:32 72 08/09/23 08:02 08/09/23 07:20 36.7 C 80 18 08/09/23 03:48 36.7 C 85 18 08/09/23 00:17 105 H Resp Resp Resp BP Pulse Ox Pulse Ox Pulse Ox 08/09/23 10:27 19 18 16 90 84 L 08/09/23 09:32 08/09/23 08:02 08/09/23 07:20 105/65 96 08/09/23 03:48 96/66 L 97 08/09/23 00:17 Pulse Ox O2 Del Method O2 Flow Rate O2 Flow Rate 08/09/23 10:27 93 2 08/09/23 09:32 08/09/23 08:02 Nasal Cannula 3 08/09/23 07:20 Room Air 08/09/23 03:48 Nasal Cannula 2 08/09/23 00:17
[2023-08-09] MEDS: oxyCODONE HCL IR 5 MG TAB (IMMEDIATE RELEASE) PO PRN (12:27)
[2023-08-10 02:42] VITALS: RESP 18; TEMP 98.2
[2023-08-10 04:27] LABS: BUN Creatinine Ratio 25.8 (10-20); Calcium 9.2 mg/dl (8.6-10.3); Creatinine Clr Calc Pharmacy 143.4 ml/min; Est GFR (African American) 128.9 ml/min; Est GFR (Non-African American) 111.2 ml/min; Hematocrit (blood only) 33.2 % (37.0-47.0); Mean Corpuscular Hemoglobin 28.8 pg (25.0-34.0); Mean Corpuscular Hgb Conc 33.1 g/dL (32.0-36.0); Mean Corpuscular Volume 86.9 fL (80.0-100.0); Mean Platelet Volume 10.4 fL (9.4-12.4); Platelet Count 267 K/uL (130-400); Potassium 3.4 mmol/L (3.5-5.1); RDW Coefficient of Variation 13.4 % (11.5-14.5); RDW Standard Deviation 42.2 fL (36.4-46.3); Red Blood Count 3.82 M/uL (4.20-5.40); White Blood Count 4.86 K/ul (4.8-10.8)
[2023-08-10 07:17] VITALS: BP 105/66; O2SAT 95
[2023-08-10] MEDS: POTASSIUM CHLORIDE CRTAB 20 MEQ TABCR PO STA (08:22)
[2023-08-10] MEDS ORDERED: oxyCODONE HCL IR 5 MG TAB (IMMEDIATE RELEASE) PO PRN (08:45)
[2023-08-10 11:42] VITALS: PULSE 77
== END 2023-08-10 12:48 | disposition home or self-care (01) | DRG 299 ==
LOC: ED 10:37 → SUATTDRO 15:38 → 4W 15:38

== ENCOUNTER 2024-03-26 17:35 | Inpatient (IN) ==
[2024-03-26 18:17] LABS: Basophils # (auto) 0.04 K/uL (0.00-0.20); Basophils % (auto) 0.3 %; Eosinophils # (auto) 0.05 K/uL (0.00-0.50); Eosinophils % (auto) 0.4 %; Hematocrit (blood only) 38.1 % (37.0-47.0); Hemoglobin 12.8 g/dl (12.0-16.0); Immature Granulocytes # (auto) 0.04 K/uL (0.01-0.20); Immature Granulocytes % (auto) 0.3 %; Lymphocytes # (auto) 0.78 K/uL (1.20-3.40); Lymphocytes % (auto) 6.7 %; Mean Corpuscular Hemoglobin 28.3 pg (25.0-34.0); Mean Corpuscular Hgb Conc 33.6 g/dL (32.0-36.0); Mean Corpuscular Volume 84.1 fL (80.0-100.0); Mean Platelet Volume 10.5 fL (9.4-12.4); Monocytes # (auto) 0.39 K/uL (0.11-0.59); Monocytes % (auto) 3.3 %; Neutrophils # (auto) 10.42 K/uL (1.40-6.50); Platelet Count 249 K/uL (130-400); RDW Coefficient of Variation 13.3 % (11.5-14.5); RDW Standard Deviation 41.1 fL (36.4-46.3); Red Blood Count 4.53 M/uL (4.20-5.40); White Blood Count 11.72 K/ul (4.8-10.8)
[2024-03-26 18:26] LABS: Albumin Globulin Ratio 1.2 (0.9-2); Albumin Level 4.1 gm/dl (3.4-5.0); BUN Creatinine Ratio 20.6 (10-20); Bilirubin,Total 0.4 mg/dl (0.2-1.0); Creatinine Clr Calc Pharmacy 131.9 ml/min; Globulin 3.4 gm/dl (2.5-4.0); Magnesium 1.7 mg/dl (1.7-2.4); Potassium 3.8 mmol/L (3.5-5.1); Total Protein 7.5 gm/dl (6.0-8.3)
[2024-03-26 18:32] LABS: Troponin I High Sensitivity 2.4 pg/ml (0-14)
--- NOTE | 2024-03-26 18:36 | Emergency Department Note ---
Impression & Plan Sepsis, Complication of breast implant surgery ED Provider Note NAME: HEATHER BLACK AGE: 43 SEX: F : 1980 ARRIVES VIA: Walk-In INFORMANT: Patient, ED PROVIDER(S): Mary Dsouza MD CHIEF COMPLAINT: Headache, nausea, right flank/chest pain HPI: This is a 43-year-old female presenting for right chest pain. Patient notes that she recently had a reconstructive surgery of her breast at 2 weeks ago. She had not been on blood thinners at this time for the surgery. She notes that she began having headache, malaise, nausea and generalized right- sided chest/breast pain. She notes this all began over the last 1 day. She denies any fevers but has had shaking chills. No drainage from the incision sites ROS: See above HPI for pertinent positives & negatives. A total of 10 systems reviewed and were otherwise negative. PAST MEDICAL HISTORY: See Below PAST SURGICAL HISTORY: See Below FAMILY HISTORY: See Below SOCIAL HISTORY: See Below HOME MEDICATIONS: See Below ALLERGIES: See Below VITALS: See Below PHYSICAL EXAMINATION: General: resting comfortably in no acute distress Head: Normocephalic and atraumatic Eyes: Normal inspection, extraocular muscles intact Ear, nose, throat: Normal external exam Neck: Normal range of motion Respiratory: lungs clear to auscultation bilaterally Cardiovascular: Regular rate/rhythm, no murmur Chest: Surgical wounds are well-appearing without active drainage, tenderness, fluctuance GI: soft, nontender, no guarding or rebound Extremities: nontender, moves all extremities Neuro: The patient awake and alert, appropriately conversive, no focal deficits, symmetric faces Skin: Warm, dry, and intact MEDICAL DECISION MAKING: This is a 43-year-old female present for right chest pain. Considered PE, pneumonia, right breast abscess, upper respiratory infection, sepsis. -Will do chest x-ray, basic blood work, lactic acid level and troponin -Patient is currently tachycardic with heart rates in the 125-130s -Will give 1 L normal saline at this time for fluid resuscitation. Blood pressure also slightly downtrending at 90s over 60s. -Will give ceftriaxone/doxycycline for suspected pneumonia due to shortness of breath. -Blood work is reassuring showing slight leukocytosis but otherwise no anemia. Electrolytes are within normal limits. Lactic acid level is elevated however. -CT of the chest does not reveal a pulmonary embolism on my initial read. -Official read does report fluid around the right breast implant which will need more imaging. Discussed with her surgeon, Dr. Sanam Chavez who states that she is unfortunately out and cannot consult on the patient. She would recommend transfer if clinically indicated. -Discussed care with outside facility, Dr Ross, Plastic surgeon at [facility] states that based on patient's current history, low concern for acute breast related sepsis would recommend IV antibiotics and admission. -Discussed care with general surgeon here, Dr. Turpin, who states she reviewed imaging and presenting a large abscess concerning finding. She is happy to consult but do believe patient requires IV antibiotics and medicine admission. -With patient's symptoms, will admit for IV antibiotics. Patient already given IV ceftriaxone/doxycycline. She has negative procalcitonin otherwise, troponin is negative as well.. Differential diagnosis: Pulmonary embolism,, pneumonia, sepsis, breast infection, ACS, pericarditis Independent History obtained from: Diagnostics interpreted by me: ECG: ECG independently interpreted by me with sinus tachycardia with a rate of 126, normal LA, normal QRS, prolonged QTc no ST segment elevations consistent with STEMI criteria Cardiac Monitoring: An order was placed for continuous cardiac monitoring. The monitor shows a rate of 170 with sinus rhythm. Critical Care Note: I have personally spent 35 minutes of critical care time in the direct management of this patient. This includes bedside care, interpretation of diagnostic studies, and testing, discussion with consultants, patient, and family members, and other required patient management activities. This 35 minutes is in excess of all separately billable procedures. Past Med/Surg History Problem List (Updated 03/28/24 @ 23:06 by Mary Dsouza MD) Complication of breast implant surgery (Acute) Sepsis (Acute) Tachycardia Mastitis in female Sepsis Gallstones Right lower lobe lung mass Elevated hemoglobin A1c Pleural effusion due to another disorder Normocytic anemia (Acute) Hypokalemia (Acute) Pulmonary infarct Shortness of breath (Acute) Pulmonary emboli Chest pain (Acute) H/O bilateral mastectomy (07/15/23) Bilateral Breast Mastectomy - Reji Beasley, DO Encounter for breast reconstruction following mastectomy Papilloma of left breast Facial lesion Leukopenia 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) Depression with anxiety (Chronic) Hyperlipidemia (Chronic) Diet controlled per 05/2021 PCP note Hypothyroidism (Chronic) Mitral valve disorder (Chronic) Medical History 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 Normocytic anemia Right lower lobe lung mass Gallstones Hx of renal calculi Hx pulmonary embolism (07/2023) Hypothyroidism ADD (attention deficit disorder) Hiatal hernia Atypical ductal hyperplasia of right breast MVP (mitral valve prolapse) Depression with anxiety Abnormal menstrual cycle Surgical History Hx of bilateral mastectomy (07/15/23) Hx of wisdom tooth extraction History of lumpectomy of right breast (2021) H/O right breast biopsy (11/06/21) History of lumpectomy of left breast (2016) History of colonoscopy S/P fine needle aspiration (2009) Family History Grandmother (Paternal) Breast cancer Diabetes Aunt Breast cancer, Onset Age: 28 Father Diabetes Depression Hypertension Heart disease Mother Hypertension Diabetes Cancer Stroke Unknown Breast cancer, Onset Age: 26 Aunt Breast cancer, Onset Age: 42 Aunt Breast cancer, Onset Age: 44 Daughter No problems noted. Son No problems noted. Brother Cancer Other Ovarian cancer Denies family history of Colorectal cancer Social History Smoking Status: Never smoker Second Hand Exposure: No; Do You Dip or Chew Tobacco: No; Hx Alcohol Use: No Hx Substance Use: No Preferred Language: Frisian Communication Ability: Effective Visual Impairment: No Limitations Hearing Ability: Normal Wheel Polisher Required: No Beliefs That Will Affect Care: None marital status: Current Living Situation: Spouse current occupational status: employed current occupation: works from home How many Children do You have: 2 Feels Safe at Home: Yes Childhood Exposure to Second-Hand Smoke: No Diet: regular caffeine: Yes during the past year weight has: increased > 10 lbs Dental Care, Regularly: Yes Assistive Devices: None Allergies Allergies Allergy/AdvReac Type Severity Reaction Status Date / Time chlorpheniramine Allergy Unknown LOOPY Verified 03/09/24 11:50 [From Aller-Chlor DEPRESSIVE Decongestant] STATE pseudoephedrine Allergy Unknown LOOPY Verified 03/09/24 11:50 [From Aller-Chlor DEPRESSIVE Decongestant] STATE Home Meds Previous Rx's Medication Instructions Recorded levothyroxine 50 mcg tablet 50 mcg PO DAILYBB #90 tabs 06/21/23 pravastatin 10 mg tablet 10 mg PO HS #90 tabs 08/29/23 Prosthetic Mastectomy Bra #1 ea 09/29/23 buspirone 15 mg tablet 15 mg PO HS #90 tabs 01/14/24 sertraline 100 mg tablet 150 mg (1.5 x 100 mg) PO HS #135 02/13/24 tabs Results & Data (ED) Vital Signs Vital Signs - 24 hr 03/26/24 17:39 03/26/24 18:18 03/26/24 18:20 Temperature 37 C Temperature Source Temporal Artery Scan Pulse Rate 118 H 127 H Pulse Rate [Apical] Respiratory Rate 22 Respiratory Effort / Characteristics Non-Labored Respiratory Depth Normal Respiratory Pattern Blood Pressure 103/62 119/73 Blood Pressure [Left Arm] Blood Pressure Mean 75 85 Blood Pressure Mean [Left Arm] Blood Pressure Position Sitting Pulse Oximetry 99 97 Oxygen Delivery Method Room Air Room Air Sepsis Recent Fever Within 48 Hours No Sepsis New/Unexplained Change in Mental Status No Sepsis Action Taken by Nursing Physician Notified 03/26/24 18:23 03/26/24 18:30 03/26/24 19:27 Temperature 36.5 C Temperature Source Oral Pulse Rate 129 H 128 H Pulse Rate [Apical] 129 H Respiratory Rate 20 18 Respiratory Effort / Characteristics Non-Labored Spontaneous Respiratory Depth Normal Respiratory Pattern Regular Blood Pressure Blood Pressure [Left Arm] 99/57 L Blood Pressure Mean Blood Pressure Mean [Left Arm] 71 Blood Pressure Position Pulse Oximetry 96 Oxygen Delivery Method Room Air Sepsis Recent Fever Within 48 Hours Sepsis New/Unexplained Change in Mental Status Sepsis Action Taken by Nursing 03/26/24 20:00 03/26/24 20:54 03/26/24 22:00 Temperature 37.9 C H 37.2 C Temperature Source Oral Oral Pulse Rate Pulse Rate [Apical] 121 H 123 H 114 H Respiratory Rate 18 24 18 Respiratory Effort / Characteristics Non-Labored Spontaneous Non-Labored Spontaneous Respiratory Depth Normal Shallow Normal Respiratory Pattern Regular Regular Blood Pressure Blood Pressure [Left Arm] 120/67 95/74 L 97/60 L Blood Pressure Mean Blood Pressure Mean [Left Arm] 84 81 72 Blood Pressure Position Pulse Oximetry 96 97 96 Oxygen Delivery Method Room Air Room Air Room Air Sepsis Recent Fever Within 48 Hours Sepsis New/Unexplained Change in Mental Status Sepsis Action Taken by Nursing 03/26/24 22:10 Temperature Temperature Source Pulse Rate 117 H Pulse Rate [Apical] Respiratory Rate Respiratory Effort / Characteristics Respiratory Depth Respiratory Pattern Blood Pressure Blood Pressure [Left Arm] Blood Pressure Mean Blood Pressure Mean [Left Arm] Blood Pressure Position Pulse Oximetry Oxygen Delivery Method Sepsis Recent Fever Within 48 Hours Sepsis New/Unexplained Change in Mental Status Sepsis Action Taken by Nursing Laboratory Data 03/27/24 04:35 03/27/24 04:35 Lab Results 03/26/24 03/26/24 03/26/24 Range/Units 17:57 19:39 19:43 WBC 11.72 H (4.8-10.8) K/ul RBC 4.53 (4.20-5.40) M/uL Hgb 12.8 (12.0-16.0) g/dl Hct 38.1 (37.0-47.0) % MCV 84.1 (80.0-100.0) fL MCH 28.3 (25.0-34.0) pg MCHC 33.6 (32.0-36.0) g/dL RDW Std Deviation 41.1 (36.4-46.3) fL RDW Coeff of Joie 13.3 (11.5-14.5) % Plt Count 249 (130-400) K/uL MPV 10.5 (9.4-12.4) fL Immature Gran % (Auto) 0.3 % Neut % (Auto) 89.0 % Lymph % (Auto) 6.7 % [place] % (Auto) 3.3 % Eos % (Auto) 0.4 % Baso % (Auto) 0.3 % Neut # (Auto) 10.42 H (1.40-6.50) K/uL Lymph # (Auto) 0.78 L (1.20-3.40) K/uL [place] # (Auto) 0.39 (0.11-0.59) K/uL Eos # (Auto) 0.05 (0.00-0.50) K/uL Baso # (Auto) 0.04 (0.00-0.20) K/uL Immature Gran # (Auto) 0.04 (0.01-0.20) K/uL PT 10.4 (9.0-12.0) Seconds INR 1.0 (0.9-1.1) APTT 23 (21-31) Seconds PTT Ratio 0.9 Sodium 137 (136-145) mmol/L Potassium 3.8 (3.5-5.1) mmol/L Chloride 105 (98-107) mmol/L Carbon Dioxide 23 (21-32) mmol/L Anion Gap 9 (3-11) BUN 14 (6-23) mg/dl Creatinine 0.68 (0.6-1.2) mg/dl Est Cr Clr Drug Dosing 131.9 ml/min eGFR 111.45 BUN/Creatinine Ratio 20.6 H (10-20) Glucose 153 H (70-99(Fasting)) mg/dl Lactate 2.2 H* 2.3 H* (0.4-2.0) mmol/L Calcium 9.0 (8.6-10.3) mg/dl Magnesium 1.7 (1.7-2.4) mg/dl Total Bilirubin 0.4 (0.2-1.0) mg/dl AST 18 (13-39) U/L ALT 13 (7-52) U/L Alkaline Phosphatase 75 (34-104) U/L Troponin I High Sens 2.4 (0-14) pg/ml Total Protein 7.5 (6.0-8.3) gm/dl Albumin 4.1 (3.4-5.0) gm/dl Globulin 3.4 (2.5-4.0) gm/dl Albumin/Globulin Ratio 1.2 (0.9-2) Procalcitonin 0.03 (0-0.5) ng/ml Urine Color Urine Appearance (Clear) Urine pH (4.5-7.5) Ur Specific [place] (1.000-1.030) Urine Protein (Negative) Urine Glucose (UA) (Negative) Urine Ketones (Negative) Urine Blood (Negative) Urine Nitrite (Negative) Urine Bilirubin (Negative) Urine Urobilinogen (Negative) Ur Leukocyte Esterase (Negative) Adenovirus (PCR) Not Detected (NotDetected) B. pertussis DNA (PCR) Not Detected (NotDetected) B.parapertussis DNA PCR Not Detected (NotDetected) C. pneumoniae DNA (PCR) Not Detected (NotDetected) Coronavirus OC43 (PCR) Not Detected (NotDetected) Coronavirus HKU1 (PCR) Not Detected (NotDetected) Coronavirus 229E (PCR) Not Detected (NotDetected) SARS-CoV-2 (PCR) Not Detected (NotDetected) Coronavirus NL63 (PCR) Not Detected (NotDetected) Human Metapneumovir PCR Not Detected (NotDetected) Influenza Type A (PCR) Not Detected (NotDetected) Influenza Type B (PCR) Not Detected (NotDetected) M. pneumoniae (PCR) Not Detected (NotDetected) Parainfluenza 1 (PCR) Not Detected (NotDetected) Parainfluenza 2 (PCR) Not Detected (NotDetected) Parainfluenza 3 (PCR) Not Detected (NotDetected) Parainfluenza 4 (PCR) Not Detected (NotDetected) RSV (PCR) Not Detected (NotDetected) Entero/Rhino (PCR) Not Detected (NotDetected) 03/26/24 Range/Units 21:15 WBC (4.8-10.8) K/ul RBC (4.20-5.40) M/uL Hgb (12.0-16.0) g/dl Hct (37.0-47.0) % MCV (80.0-100.0) fL MCH (25.0-34.0) pg MCHC (32.0-36.0) g/dL RDW Std Deviation (36.4-46.3) fL RDW Coeff of Joie (11.5-14.5) % Plt Count (130-400) K/uL MPV (9.4-12.4) fL Immature Gran % (Auto) % Neut % (Auto) % Lymph % (Auto) % [place] % (Auto) % Eos % (Auto) % Baso % (Auto) % Neut # (Auto) (1.40-6.50) K/uL Lymph # (Auto) (1.20-3.40) K/uL [place] # (Auto) (0.11-0.59) K/uL Eos # (Auto) (0.00-0.50) K/uL Baso # (Auto) (0.00-0.20) K/uL Immature Gran # (Auto) (0.01-0.20) K/uL PT (9.0-12.0) Seconds INR (0.9-1.1) APTT (21-31) Seconds PTT Ratio Sodium (136-145) mmol/L Potassium (3.5-5.1) mmol/L Chloride (98-107) mmol/L Carbon Dioxide (21-32) mmol/L Anion Gap (3-11) BUN (6-23) mg/dl Creatinine (0.6-1.2) mg/dl Est Cr Clr Drug Dosing ml/min eGFR BUN/Creatinine Ratio (10-20) Glucose (70-99(Fasting)) mg/dl Lactate (0.4-2.0) mmol/L Calcium (8.6-10.3) mg/dl Magnesium (1.7-2.4) mg/dl Total Bilirubin (0.2-1.0) mg/dl AST (13-39) U/L ALT (7-52) U/L Alkaline Phosphatase (34-104) U/L Troponin I High Sens (0-14) pg/ml Total Protein (6.0-8.3) gm/dl Albumin (3.4-5.0) gm/dl Globulin (2.5-4.0) gm/dl Albumin/Globulin Ratio (0.9-2) Procalcitonin (0-0.5) ng/ml Urine Color Yellow Urine Appearance Clear (Clear) Urine pH 5.5 (4.5-7.5) Ur Specific [place] 1.043 H (1.000-1.030) Urine Protein Negative (Negative) Urine Glucose (UA) Negative (Negative) Urine Ketones Negative (Negative) Urine Blood Negative (Negative) Urine Nitrite Negative (Negative) Urine Bilirubin Negative (Negative) Urine Urobilinogen Negative (Negative) Ur Leukocyte Esterase Negative (Negative) Adenovirus (PCR) (NotDetected) B. pertussis DNA (PCR) (NotDetected) B.parapertussis DNA PCR (NotDetected) C. pneumoniae DNA (PCR) (NotDetected) Coronavirus OC43 (PCR) (NotDetected) Coronavirus HKU1 (PCR) (NotDetected) Coronavirus 229E (PCR) (NotDetected) SARS-CoV-2 (PCR) (NotDetected) Coronavirus NL63 (PCR) (NotDetected) Human Metapneumovir PCR (NotDetected) Influenza Type A (PCR) (NotDetected) Influenza Type B (PCR) (NotDetected) M. pneumoniae (PCR) (NotDetected) Parainfluenza 1 (PCR) (NotDetected) Parainfluenza 2 (PCR) (NotDetected) Parainfluenza 3 (PCR) (NotDetected) Parainfluenza 4 (PCR) (NotDetected) RSV (PCR) (NotDetected) Entero/Rhino (PCR) (NotDetected) Administered Medications Discontinued Medications Buspirone HCl (Buspirone 15 Mg Tab) 15 mg PO HS [facility] Stop: 04/26/24 20:59 Last Admin: 03/27/24 20:39 Dose: 15 mg Documented By: NADIA Doxycycline Hyclate (Doxycycline Hyclate 100 Mg Cap) 100 mg PO NOW STA Stop: 03/26/24 21:01 Last Admin: 03/26/24 21:11 Dose: 100 mg Documented By: ANEESH Gabapentin (Gabapentin 300 Mg Cap) 300 mg PO NOW STA Stop: 03/27/24 05:53 Last Admin: 03/27/24 06:27 Dose: 300 mg Documented By: SPENCER Gabapentin (Gabapentin 300 Mg Cap) 300 mg PO TID GHAZAL Stop: 04/26/24 11:59 Last Admin: 03/27/24 20:38 Dose: 300 mg Documented By: Admin: 03/27/24 14:16 Dose: Not Given Documented By: Admin: 03/27/24 12:59 Dose: 300 mg Documented By: BILL Hydromorphone HCl (Hydromorphone Inj 0.5 Mg/0.5 Ml Syr) 0.25 mg IV Q2H PRN PRN Reason: Moderate Pain (4,5,6) on NRS Stop: 04/10/24 12:27 Last Admin: 03/27/24 13:03 Dose: 0.25 mg Documented By: BILL Hydromorphone HCl (Hydromorphone Inj 1 Mg/Ml Syringe) 0.5 mg IV Q2H PRN PRN Reason: Severe Pain (7,8,9,10) on NRS Stop: 04/10/24 12:27 Last Admin: 03/27/24 20:33 Dose: 0.5 mg Documented By: Admin: 03/27/24 18:01 Dose: 0.5 mg Documented By: Admin: 03/27/24 15:20 Dose: 0.5 mg Documented By: SACHIN Hydromorphone HCl (Hydromorphone Inj 0.5 Mg/0.5 Ml Syr) 0.5 mg IV NOW STA Stop: 03/27/24 22:59 Last Admin: 03/27/24 23:12 Dose: 0.5 mg Documented By: NADIA Sodium Chloride (Nss) 1,000 mls @ 999 mls/hr IV .Q1H1M ONE Stop: 03/26/24 20:00 Last Infusion: 03/26/24 20:37 Dose: Infused Documented By: Admin: 03/26/24 19:36 Dose: 999 mls/hr Documented By: ANEESH Acetaminophen (Ofirmev) 1,000 mg in 100 mls @ 400 mls/hr IV NOW STA Stop: 03/26/24 19:14 Last Infusion: 03/26/24 19:51 Dose: Infused Documented By: Admin: 03/26/24 19:36 Dose: 400 mls/hr Documented By: ANEESH Ceftriaxone Sodium (Rocephin) 2,000 mg in 50 mls @ 100 mls/hr IV NOW STA Stop: 03/26/24 21:29 Last Infusion: 03/26/24 21:38 Dose: Infused Documented By: Admin: 03/26/24 21:08 Dose: 100 mls/hr Documented By: GCC Sodium Chloride (Nss) 1,000 mls @ 999 mls/hr IV .Q1H1M ONE Stop: 03/26/24 23:37 Last Infusion: 03/27/24 00:27 Dose: Infused Documented By: Admin: 03/26/24 23:00 Dose: 999 mls/hr Documented By: ANEESH Piperacillin Sod/Tazobactam Sod (Zosyn) 4.5 gm in 100 mls @ 25 mls/hr IV Q8H [facility]; Protocol Stop: 04/03/24 05:59 Last Admin: 03/27/24 22:14 Dose: 25 mls/hr Documented By: Infusion: 03/27/24 19:35 Dose: Infused Documented By: Admin: 03/27/24 15:29 Dose: 25 mls/hr Documented By: Infusion: 03/27/24 11:53 Dose: Infused Documented By: Admin: 03/27/24 07:40 Dose: 25 mls/hr Documented By: AMS Sodium Chloride (Nss) 1,000 mls @ 125 mls/hr IV .Q8H GHAZAL Stop: 03/27/24 15:14 Last Infusion: 03/27/24 11:53 Dose: Infused Documented By: Admin: 03/27/24 08:31 Dose: 125 mls/hr Documented By: Infusion: 03/27/24 08:30 Dose: Infused Documented By: Admin: 03/27/24 00:30 Dose: 125 mls/hr Documented By: IDD Vancomycin HCl 2,250 mg/ (Sodium Chloride) 545 mls @ 200 mls/hr IV NOW STA Stop: 03/27/24 01:57 Last Infusion: 03/27/24 04:26 Dose: Infused Documented By: Admin: 03/27/24 01:10 Dose: 200 mls/hr Documented By: IDD Piperacillin Sod/Tazobactam Sod (Zosyn) 4.5 gm in 100 mls @ 200 mls/hr IV NOW STA; Protocol Stop: 03/26/24 23:44 Last Infusion: 03/27/24 01:00 Dose: Infused Documented By: Admin: 03/27/24 00:26 Dose: 200 mls/hr Documented By: IDD Magnesium Sulfate/Dextrose (Magnesium Sulfate / D5w) 1 gm in 100 mls @ 50 mls/hr IV Q2H GHAZAL Stop: 03/27/24 05:14 Last Infusion: 03/27/24 05:32 Dose: Infused Documented By: Admin: 03/27/24 03:36 Dose: 50 mls/hr Documented By: Infusion: 03/27/24 03:33 Dose: Infused Documented By: Admin: 03/27/24 02:15 Dose: 50 mls/hr Documented By: IDD Vancomycin HCl (Vancomycin Hcl) 1,000 mg in 270 mls @ 200 mls/hr IV Q8H GHAZAL Stop: 04/03/24 09:59 Last Admin: 03/27/24 12:13 Dose: Not Given Documented By: BILL Acetaminophen (Ofirmev) 1,000 mg in 100 mls @ 400 mls/hr IV Q8H PRN PRN Reason: Pain Stop: 03/30/24 02:56 Last Infusion: 03/27/24 21:12 Dose: Infused Documented By: Admin: 03/27/24 20:38 Dose: 400 mls/hr Documented By: Infusion: 03/27/24 06:48 Dose: Infused Documented By: Admin: 03/27/24 06:27 Dose: 400 mls/hr Documented By: SPENCER Daptomycin 475 mg/ Syringe 9.5 mls @ 4.75 mls/min IV Q24H GHAZAL; Protocol Stop: 04/03/24 10:59 Last Admin: 03/27/24 12:00 Dose: 4.75 mls/min Documented By: BILL Potassium Chloride/Sodium Chloride (Normal Saline W/20 Meq Kcl) 20 meq in 1,000 mls @ 150 mls/hr IV .Q6H40M GHAZAL Stop: 03/27/24 17:54 Last Infusion: 03/27/24 21:12 Dose: Infused Documented By: Infusion: 03/27/24 15:27 Dose: 125 mls/hr Documented By: Infusion: 03/27/24 14:50 Dose: 0 mls/hr Documented By: Admin: 03/27/24 12:22 Dose: 150 mls/hr Documented By: BILL Parenteral Electrolytes (Plasma-Lyte A Ph 7.4) 500 mls @ 999 mls/hr IV .Q31M ONE Stop: 03/27/24 13:06 Last Infusion: 03/27/24 15:27 Dose: Infused Documented By: Admin: 03/27/24 14:14 Dose: 999 mls/hr Documented By: BILL Sodium Chloride (Nss) 1,000 mls @ 125 mls/hr IV .Q8H GHAZAL Stop: 03/28/24 22:14 Last Admin: 03/27/24 22:14 Dose: 125 mls/hr Documented By: NADIA Ioversol (Optiray 320 125ml) 120 ml IV ONCE ONE Stop: 03/26/24 18:53 Last Admin: 03/26/24 18:52 Dose: 120 ml Documented By: RACHEL Ketorolac Tromethamine (Ketorolac Tromethamine 15 Mg/Ml Vial) 15 mg IV NOW ONE Stop: 03/26/24 21:01 Last Admin: 03/26/24 21:06 Dose: 15 mg Documented By: ANEESH Ketorolac Tromethamine (Ketorolac Tromethamine 15 Mg/Ml Vial) 15 mg IV NOW ONE Stop: 03/27/24 02:03 Last Admin: 03/27/24 02:14 Dose: 15 mg Documented By: ELI Ketorolac Tromethamine (Ketorolac Tromethamine 15 Mg/Ml Vial) 15 mg IV Q6H PRN PRN Reason: Pain Stop: 04/01/24 02:56 Last Admin: 03/27/24 12:22 Dose: 15 mg Documented By: BILL Levothyroxine Sodium (Levothyroxine Sodium 50 Mcg Tablet) 50 mcg PO DAILYBB [facility] Stop: 04/26/24 06:29 Last Admin: 03/27/24 06:26 Dose: 50 mcg Documented By: SPENCER Lidocaine (Lidocaine 5% 1 Patch) 1 patch TD NOW STA Stop: 03/27/24 05:49 Last Admin: 03/27/24 06:19 Dose: 1 patch Documented By: SPENCER Miscellaneous (Remove Lidoderm Patch) 1 each N/A DAILY@2100 ONE Stop: 03/27/24 21:01 Last Admin: 03/27/24 20:40 Dose: 1 each Documented By: NADIA Potassium Chloride (Potassium Chloride Crtab 20 Meq Tabcr) 40 meq PO NOW STA Stop: 03/27/24 01:07 Last Admin: 03/27/24 02:15 Dose: 40 meq Documented By: ELI Sertraline HCl (Sertraline Hcl 50 Mg Tablet) 150 mg PO [facility] Stop: 04/26/24 20:59 Last Admin: 03/27/24 20:39 Dose: 150 mg Documented By: NADIA Tramadol HCl (Tramadol Hcl 50 Mg Tablet) 50 mg PO NOW STA Stop: 03/27/24 03:51 Last Admin: 03/27/24 04:05 Dose: 50 mg Documented By: SPENCER Imaging Data Radiologist's Impression: Chest CTA 03/26/24 18:31 Exam(s): CTA CHEST IV Amt: 120 ml optiray 320 EXAM: CT Angiography Chest With Intravenous Contrast CLINICAL HISTORY: Abscess TECHNIQUE: Axial computed tomographic angiography images of the chest with intravenous contrast. MIPS images were created and reviewed. CTDI is 34 mGy and DLP is 1089 mGy-cm. Automated exposure control was utilized for the study. A dose lowering technique was utilized adhering to the principles of ALARA. MIP reconstructed images were created and reviewed. COMPARISON: CT chest 01/16/2024 FINDINGS: Pulmonary arteries: Unremarkable. No pulmonary embolus. Aorta: No acute findings. No thoracic aortic aneurysm. Lungs: Unremarkable. No mass. No consolidation. Pleural space: Unremarkable. No significant effusion. No pneumothorax. Heart: Unremarkable. No cardiomegaly. No significant pericardial effusion. No evidence of RV dysfunction. Bones/joints: There are degenerative changes of the spine. No acute fracture. No dislocation. Soft tissues: There is fluid surrounding the right breast implant. Nonspecific thickening of the dermis of both breasts. Cannot exclude intracapsular rupture of the right breast implant. Lymph nodes: Unremarkable. No enlarged lymph nodes. IMPRESSION: 1. No pulmonary embolus. 2. There is fluid surrounding the right breast implant. Recommend further evaluation at a dedicated breast imaging center as the differential is large however includes malignancy. 3. Nonspecific thickening of the dermis of both breasts. 4. Cannot exclude intracapsular rupture of the right breast implant. Electronically signed by: Blanquita Qiu MD 03/26/24 21:16 PM Discharge Plan Visit Data Chief Complaint: Flank Pain Stated Complaint: HEADACHE, RT FLANK PAIN, 2 WKS POST SURGERY ED Provider: Mary Dsouza Discharge Problem: Sepsis, Complication of breast implant surgery Patient Disposition: Admitted As Inpatient Condition: Good Discharge Instructions Interventions: ED Discharge Assessment Last Done: 03/27/24 02:57
[2024-03-26 18:42] LABS: Partial Thromboplastin Ratio 0.9; Partial Thromboplastin Time 23 Seconds (21-31); Prothrombin Time 10.4 Seconds (9.0-12.0)
[2024-03-26] MEDS: OPTIRAY 320 125ml IV ONE (18:52)
[2024-03-26] MEDS: ACETAMINOPHEN 1,000 MG/100 ML VIAL IV STA (19:36)
[2024-03-26] MEDS: SODIUM CHLORIDE 0.9% 1,000 ML IV ONE ×2 (19:36→23:00)
[2024-03-26] MEDS: KETOROLAC TROMETHAMINE 15 MG/ML VIAL IV ONE (21:06)
[2024-03-26] MEDS: cefTRIAXone SODIUM 2,000 MG/50 ML BAG IV STA (21:08)
[2024-03-26] MEDS: DOXYCYCLINE HYCLATE 100 MG CAP PO STA (21:11)
--- NOTE | 2024-03-26 21:17 | CT Scan Report ---
Exam(s): CTA CHEST IV Amt: 120 ml optiray 320 EXAM: CT Angiography Chest With Intravenous Contrast CLINICAL HISTORY: Abscess TECHNIQUE: Axial computed tomographic angiography images of the chest with intravenous contrast. MIPS images were created and reviewed. CTDI is 34 mGy and DLP is 1089 mGy-cm. Automated exposure control was utilized for the study. A dose lowering technique was utilized adhering to the principles of ALARA. MIP reconstructed images were created and reviewed. COMPARISON: CT chest 01/16/2024 FINDINGS: Pulmonary arteries: Unremarkable. No pulmonary embolus. Aorta: No acute findings. No thoracic aortic aneurysm. Lungs: Unremarkable. No mass. No consolidation. Pleural space: Unremarkable. No significant effusion. No pneumothorax. Heart: Unremarkable. No cardiomegaly. No significant pericardial effusion. No evidence of RV dysfunction. Bones/joints: There are degenerative changes of the spine. No acute fracture. No dislocation. Soft tissues: There is fluid surrounding the right breast implant. Nonspecific thickening of the dermis of both breasts. Cannot exclude intracapsular rupture of the right breast implant. Lymph nodes: Unremarkable. No enlarged lymph nodes. IMPRESSION: 1. No pulmonary embolus. 2. There is fluid surrounding the right breast implant. Recommend further evaluation at a dedicated breast imaging center as the differential is large however includes malignancy. 3. Nonspecific thickening of the dermis of both breasts. 4. Cannot exclude intracapsular rupture of the right breast implant. Electronically signed by: Blanquita Qiu MD 03/26/24 21:16 PM
[2024-03-26 21:25] LABS: Adenovirus PCR Not Detected (NotDetected); Bordetella parapertussis PCR Not Detected (NotDetected); Bordetella pertussis PCR Not Detected (NotDetected); Chlamydia pneumoniae PCR Not Detected (NotDetected); Coronavirus 229E PCR Not Detected (NotDetected); Coronavirus CoV-2 (COVID19)PCR Not Detected (NotDetected); Coronavirus HKU1 PCR Not Detected (NotDetected); Coronavirus NL63 PCR Not Detected (NotDetected); Coronavirus OC43PCR Not Detected (NotDetected); Human Metapneumovirus PCR Not Detected (NotDetected); Influenza A PCR Not Detected (NotDetected); Influenza B PCR Not Detected (NotDetected); Mycoplasma pneumoniae PCR Not Detected (NotDetected); Parainfluenza Virus 1 PCR Not Detected (NotDetected); Parainfluenza Virus 2 PCR Not Detected (NotDetected); Parainfluenza Virus 3 PCR Not Detected (NotDetected); Parainfluenza Virus 4 PCR Not Detected (NotDetected); Respiratory Syncytial VirusPCR Not Detected (NotDetected); Rhinovirus/Enterovirus PCR Not Detected (NotDetected)
[2024-03-26 21:29] LABS: Appearance Urine Clear (Clear); Bilirubin Urine Negative (Negative); Blood Urine Negative (Negative); Color Urine Yellow; Glucose Urine UA Negative (Negative); Ketones Urine Negative (Negative); Leukocyte Esterase Urine Negative (Negative); Nitrite Urine Negative (Negative); Protein Urine Negative (Negative); Specific Gravity Urine 1.043 (1.000-1.030); Urobilinogen Urine Negative (Negative); pH Urine 5.5 (4.5-7.5)
[2024-03-26] MEDS ORDERED: VANCOMYCIN CONSULT ACTIVE PRN (23:05)
--- NOTE | 2024-03-26 23:25 | History & Physical Report ---
Date of Service March 26, 2024 Assessment & Plan (1) Sepsis: Plan: - source likely mastitis breast - tachycardic; but otherwise does not meet SIRs criteria on admission - mild hypotensive with BPs 90s/60s - s/p 2L IVF; continue NSS @125ml/hr for an additional 2L - switch antibiotics to vanc/zosyn - consult gen surg; NPO pending eval - Toradol/Tylenol, lidocaine patch for pain; did well with gabapentin in past-> will trial 300mg TID (2) Mastitis in female: Plan: plan as per above (3) Tachycardia: Plan: - initial EKG with accelerated junctional rhythm-> repeat with sinus tachycardiac - likely reactive in the setting of acute infection; monitor on telemetry Plan Chronic and Stable: Anxiety/Depression: continue BuSpar, Zoloft HLD: Continue statin Code: Full VTE Prophylaxis: SCD; hold chemical pending surgery eval Diet: NPO pending surgery eval Dispo: PCU History of Present Illness Primary Care Provider: Bhaskar Tinsley DO 43 year old female with a past medical history of anxiety/depression, PE, DCIS presenting with right breast pain and fever/chills. S/p B/L breast reconstruction surgery on 03/09. Had been doing well post-op up until this mo rning. Increased pain in right breast and swelling, also notes chills. Denies chest pain, pleuritic pain, dyspnea. Notes history of PE after initial breast surgery a few years ago. Notes that she did Lovenox for 7 days post-op after most recent surgery and 7 days of cephalexin. ED Course Significant for: WBC= 11.72, Lactate 2.2-> 2.3. Chest CTA without pulmonary embolism. Fluid surrounding right breast. EKG with accelerated junctional rhythm. S/p 2L IVF, ceftriaxone, doxycycline, Toradol. Allergies Allergy/AdvReac Type Severity Reaction Status Date / Time chlorpheniramine Allergy Unknown LOOPY Verified 03/09/24 11:50 [From Aller-Chlor DEPRESSIVE Decongestant] STATE pseudoephedrine Allergy Unknown LOOPY Verified 03/09/24 11:50 [From Aller-Chlor DEPRESSIVE Decongestant] STATE Home Medications Medication Instructions Recorded Confirmed Type levothyroxine 50 mcg tablet 50 mcg PO DAILYBB #90 tabs 06/21/23 03/26/24 Rx pravastatin 10 mg tablet 10 mg PO HS #90 tabs 08/29/23 03/26/24 Rx Prosthetic Mastectomy Bra #1 ea 09/29/23 03/26/24 Rx buspirone 15 mg tablet 15 mg PO HS #90 tabs 01/14/24 03/26/24 Rx sertraline 100 mg tablet 150 mg (1.5 x 100 mg) PO HS #135 02/13/24 03/26/24 Rx tabs Past Med/Surg History Problem List (Updated 03/27/24 @ 06:03 by Spring Lafleur DO) Tachycardia Mastitis in female Sepsis Gallstones Right lower lobe lung mass Elevated hemoglobin A1c Pleural effusion due to another disorder Normocytic anemia (Acute) Hypokalemia (Acute) Pulmonary infarct Shortness of breath (Acute) Pulmonary emboli Chest pain (Acute) H/O bilateral mastectomy (07/15/23) Bilateral Breast Mastectomy - Reji Beasley DO Encounter for breast reconstruction following mastectomy Papilloma of left breast Facial lesion Leukopenia 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) Depression with anxiety (Chronic) Hyperlipidemia (Chronic) Diet controlled per 05/2021 PCP note Hypothyroidism (Chronic) Mitral valve disorder (Chronic) Medical History 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 Normocytic anemia Right lower lobe lung mass Gallstones Hx of renal calculi Hx pulmonary embolism (07/2023) Hypothyroidism ADD (attention deficit disorder) Hiatal hernia Atypical ductal hyperplasia of right breast MVP (mitral valve prolapse) Depression with anxiety Abnormal menstrual cycle Surgical History Hx of bilateral mastectomy (07/15/23) Hx of wisdom tooth extraction History of lumpectomy of right breast (2021) H/O right breast biopsy (11/06/21) History of lumpectomy of left breast (2016) History of colonoscopy S/P fine needle aspiration (2009) Family History Grandmother (Paternal) Breast cancer Diabetes Aunt Breast cancer, Onset Age: 28 Father Diabetes Depression Hypertension Heart disease Mother Hypertension Diabetes Cancer Stroke Unknown Breast cancer, Onset Age: 26 Aunt Breast cancer, Onset Age: 42 Aunt Breast cancer, Onset Age: 44 Daughter No problems noted. Son No problems noted. 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 Beliefs That Will Affect Care: None marital status: Current Living Situation: Spouse current occupational status: employed current occupation: works from home How many Children do You have: 2 Feels Safe at Home: Yes Childhood Exposure to Second-Hand Smoke: No Diet: regular caffeine: Yes during the past year weight has: increased > 10 lbs Dental Care, Regularly: Yes Assistive Devices: None Review of Systems Review of Systems: As per above Physical Exam Physical Exam: Constitutional: well-appearing, no acute distress HEENT: NCAT, no conjunctival injection CV: regular rhythm, no murmur appreciated, extremities well-perfused Resp: CTABL, no wheezes/rales/rhonchi appreciated, no increased work of breathing GI: soft, nondistended, nontender MSK: no gross deformities appreciated Skin: warm, dry, no rash appreciated Breast: Swelling/tenderness right breast. [place] healing incisions B/L without d/c. Neuro: alert, oriented, no focal neurologic deficit appreciated Results & Data Results & Data Vital Signs (Past 12 Hours) Vital Signs Temp Pulse Pulse Resp BP BP Pulse Ox 03/26/24 22:10 117 H 03/26/24 22:00 37.2 C 114 H 18 97/60 L 96 03/26/24 20:54 37.9 C H 123 H 24 95/74 L 97 03/26/24 20:00 121 H 18 120/67 96 03/26/24 19:27 36.5 C 129 H 18 99/57 L 96 03/26/24 18:30 128 H 20 03/26/24 18:23 129 H 03/26/24 18:20 127 H 97 03/26/24 18:18 119/73 03/26/24 17:39 37 C 118 H 22 103/62 99 O2 Del Method 03/26/24 22:10 03/26/24 22:00 Room Air 03/26/24 20:54 Room Air 03/26/24 20:00 Room Air 03/26/24 19:27 Room Air 03/26/24 18:30 03/26/24 18:23 03/26/24 18:20 Room Air 03/26/24 18:18 03/26/24 17:39 Room Air Code Status & VTE Plan VTE Prophylaxis Plan VTE Prophylaxis will be ordered: Yes Supervising Physician Co-Signing Physician Notes Attending addendum: I have physically seen this patient, have supervised the medical residents activities, and agree with the H&P unless as otherwise noted. Assessment and Plan: Sepsis due to mastitis- Concern regarding mastitis associated with recent breast reconstruction surgery and breast implant Patient is been mildly hypotensive, with systolic blood pressure to low 90/60 She is status post 2 L IV fluid normal saline bolus in the ED, and will get additional 125 mL/h for 2 more liters Patient admitted to monitored bed and follow closely Discussed with her that she may need pressors if her pressure does not improve, and she is aware this Empiric vancomycin IV and Zosyn IV Follow blood culture and sensitivity Her breast surgeon is unfortunately on medical leave, and she will be followed by backup surgery while in the hospital Her case was discussed with tertiary care referral center, who felt that the patient did not need to be seen at this this time for surgical option Will continue to contact tertiary care center, and expedite referral if patient should show signs symptoms of need for more urgent surgery Pain control- Unable to give narcotic pain medications due to relative low blood pressure Will do a trial of Lidoderm patch, and gabapentin Patient is not considered critical care at this point, but would involve to critical care and need for pressors as noted above Resident Activity Tracking Resident Involvement: Resident Care Provided Care Provided: Adult Hospital Medicine
[2024-03-27] MEDS: 4.5GM X1 IV STA (00:26)
[2024-03-27] MEDS: SODIUM CHLORIDE 0.9% 1,000 ML IV SCH ×2 (00:30→22:14)
[2024-03-27] MEDS: VANCOMYCIN HCL 2,250 MG in SODIUM CHLORIDE 0.9% 500 ML IV STA (01:10)
[2024-03-27] MEDS: KETOROLAC TROMETHAMINE 15 MG/ML VIAL IV ONE (02:14)
[2024-03-27] MEDS: POTASSIUM CHLORIDE CRTAB 20 MEQ TABCR PO STA (02:15)
[2024-03-27] MEDS: MAGNESIUM SULFATE / D5W 1 GM/100 ML BAG IV SCH (02:15)
[2024-03-27] MEDS: traMADol HCL 50 MG TABLET PO STA (04:05)
[2024-03-27 05:43] LABS: Basophils # (auto) 0.04 K/uL (0.00-0.20); Basophils % (auto) 0.2 %; Eosinophils # (auto) 0.01 K/uL (0.00-0.50); Hematocrit (blood only) 36.4 % (37.0-47.0); Hemoglobin 12.4 g/dl (12.0-16.0); Immature Granulocytes # (auto) 0.25 K/uL (0.01-0.20); Immature Granulocytes % (auto) 1.2 %; Lymphocytes # (auto) 1.02 K/uL (1.20-3.40); Lymphocytes % (auto) 5.1 %; Mean Corpuscular Hemoglobin 28.8 pg (25.0-34.0); Mean Corpuscular Hgb Conc 34.1 g/dL (32.0-36.0); Mean Corpuscular Volume 84.7 fL (80.0-100.0); Mean Platelet Volume 10.7 fL (9.4-12.4); Neutrophils # (auto) 17.56 K/uL (1.40-6.50); Neutrophils % (auto) 87.5 %; Platelet Count 239 K/uL (130-400); RDW Coefficient of Variation 13.7 % (11.5-14.5); RDW Standard Deviation 42.3 fL (36.4-46.3); White Blood Count 20.08 K/ul (4.8-10.8)
[2024-03-27 05:50] LABS: BUN Creatinine Ratio 19.1 (10-20); Calcium 8.4 mg/dl (8.6-10.3); Creatinine Clr Calc Pharmacy 131.9 ml/min; Potassium 3.7 mmol/L (3.5-5.1)
[2024-03-27] MEDS: LIDOCAINE 5% 1 PATCH TD STA (06:19)
[2024-03-27] MEDS: LEVOTHYROXINE SODIUM 50 MCG TABLET PO SCH (06:26)
[2024-03-27] MEDS: ACETAMINOPHEN 1,000 MG/100 ML VIAL IV PRN (06:27)
[2024-03-27] MEDS: GABAPENTIN 300 MG CAP PO STA (06:27)
[2024-03-27] MEDS: PIPERACILLIN/TAZOBACTAM 4.5 GM/100 ML BAG IV SCH (07:40)
--- NOTE | 2024-03-27 10:12 | Pharmacy Report ---
Pharmacy PK ABX Note - Date of Service March 27, 2024 - Assessment and Plan Assessment 43 year old F receiving vancomycin and Zosyn for treatment of breast mastitis. No culture data. Renal function stable. Day #1 of antimicrobial therapy. Plan Vancomycin * Loading dose: 2250 mg IV x 1 * Maintenance dose: 1000 mg IV every 8 hours * Regimen is predicted to achieve target AUC/SANYA of 400-600 mg/L.hr * Will obtain a level if therapy continues beyond 48h Pharmacy will continue to follow and will adjust dose/frequency as necessary. Thank you. Pharmacy has transitioned to AUC monitoring for vancomycin. AUC/SANYA is the preferred PK/PD target and is associated with decreased risk of nephrotoxicity compared to traditional trough targets.
--- NOTE | 2024-03-27 10:40 | Hospitalist Progress Note ---
Date of Service March 27, 2024 Assessment & Plan (1) Sepsis: Plan: Sepsis due to suspected infected breast implant History of bilateral breast implant 03/09/2024 following mastectomy due to ductal carcinoma CTchest shows evidence of right breast inflammation and fluid surrounding implant. Irregularity of the breast implant contour raises suspicion for potential leakage/rupture. On review of imaging there is no obvious abscess or target for IR drainage. Reviewed with surgery. Will continue medical treatment at this time. Patient was septic on admission. Hypotensive, tachycardic, with leukocytosis. Was placed on empiric Zosyn/vancomycin. Lactate was markedly elevated, down trended following admission and normalized day after admission Leukocytosis is uptrending and with significant left shift/immature granulocytic fraction General Surgery consulted. Implantation was performed by Dr. Arnold, currently she is out on leave and not available for consultation. Continue Zosyn plus daptomycin CBC daily Blood cultures not drawn initially. She does endorse having rigors. These have been ordered 03/27, although may be sterilized post antibiotics Continue multimodal pain control Additional 1 L crystalloid given for downtrending blood pressure and tachycardia DCIS Right breast DCIS 09/19/2021, s/p lumpectomy and radiation therapy and tamoxifen, s/p bilateral mastectomy 06/2023 Provoked PE after mastectomy transiently on Eliquis Hyperlipidemia Pravastatin continued Hypothyroidism Synthroid continued Anxiety BuSpar continue Chronic and Stable: - Anxiety/Depression: continue BuSpar, Zoloft - HLD: Continue statin Code: Full VTE Prophylaxis: Lovenox. Discussed with surgery no plans for surgical intervention the next 24 hours, recommended for continued medical management and observation for now. She does have history of provoked PE and should be on pharmacal prophylaxis if no surgery is anticipated in a 24. Diet: N.p.o. at midnight if any surgical intervention is anticipated. May continue regular diet for now Dispo: PCU (2) Mastitis in female: (3) Tachycardia: Admission and Anticipated Discharge Date Admission Date: March 26, 2024 Subjective Seen at the bedside. Patient reports that in the last day she had rapid development of right-sided breast pain, tenderness, fever, and shaking chills last night. She feels improved this morning but does still continue to have a lot of pain in the right breast. There is no discharge from her surgical site. Has a history of breast implantation following vasectomy 03/09/2024. Physical Exam Physical Exam: General: A&Ox3. NAD. Cooperative. HEENT: Atraumatic, normocephalic. Vision and hearing grossly intact Pulm: CTAB A&P. -wheezes, -rales, -rhonchi. Symmetrical chest rise. No increased work of breathing. No respiratory distress. Cardiac: Tachycardic, no murmurs rubs or gallops Thorax: Right breast incision healing, mild dull erythema without bright demarcated erythema or obvious discharge. Lateral and anterior breast is p rominently tender to palpation. Results & Data Results & Data Vital Signs (Past 12 Hours) Vital Signs Temp Pulse Pulse Resp BP Pulse Ox O2 Del Method 03/27/24 08:34 94 H 24 111/56 L 94 Room Air 03/27/24 07:05 102 H 03/27/24 06:16 36.9 C 103 H 22 111/68 96 Room Air 03/27/24 03:44 97 H 18 107/59 L 96 Room Air 03/27/24 02:17 94 H 03/27/24 01:00 100 H 18 99/65 L 98 Room Air 03/27/24 01:00 102 H 18 98 Room Air PG Care Time/CCT Total # of Minutes Spent Total Time Spent with Patient: Total time spent is greater than 50% in coordination of care (as documented) at patient's floor/unit and/or counseling patient: Coding Level of Care Code 39105 SUB INP/OBS CARE 3/50MIN Diagnoses Sepsis A41.9 Mastitis in female N61.0 Tachycardia R00.0
[2024-03-27] MEDS ORDERED: POTASSIUM CHLORIDE 20 MEQ in SODIUM CHLORIDE 0.9% 1,000 ML IV SCH (10:45)
[2024-03-27] MEDS: DAPTOmycin 475 MG in SYRINGE 0 ML IV SCH (12:00)
[2024-03-27] MEDS: VANCOMYCIN HCL 1,000 MG/270 ML BAG IV SCH (12:13)
[2024-03-27] MEDS: KETOROLAC TROMETHAMINE 15 MG/ML VIAL IV PRN (12:22)
[2024-03-27] MEDS: NSS + 20MEQ KCL 20 MEQ/1,000 ML BAG IV SCH (12:22)
[2024-03-27] MEDS ORDERED: KETOROLAC TROMETHAMINE 15 MG/ML VIAL IV PRN (12:29)
[2024-03-27] MEDS: GABAPENTIN 300 MG CAP PO SCH (12:59)
[2024-03-27] MEDS: HYDROmorphone INJ 0.5 MG/0.5 ML SYR IV PRN (13:03)
--- NOTE | 2024-03-27 14:12 | Surgery Consultation ---
Date of Consultation March 27, 2024 Assessment & Plan (1) Tachycardia: (2) Sepsis: Plan 43F h/o b/l mastectomy and s/p tissue continuous loft operator exchange for implant reconstruction on 03/09/24 presented to the ED on the night of 03/26/24 with the c/o sudden onset of increased pain in the right breast along with swelling and chills. Evidence for small amount of fluid surrounding the implant on CTA without significant fluid collection that is amenable to percutaneous drainage. Admitted to the medical service with surgical consultation Case discussed with plastic surgery Continue compression with surgical bra Blood cultures Initiate IV broad spectrum antibiotics Patient may have a diet as tolerated Provide pain control and antiemetic as needed Chemical DVT ppx Follow up am labs Surgery will continue to follow History of Present Illness Reason for Consultation: Signs of sepsis in the face of recent surgery Attending Physician: Denver Ojeda MD History of Present Illness 43F with h/o b/l mastectomy and s/p tissue continuous loft operator exchange for implant reconstruction on 03/09/24 presented to the ED on the night of 03/26/24 with the c/o sudden onset of increased pain in the right breast along with swelling and chills. Ms. Parmar is a very pleasant 43-year-old female with a complicated PMHx involving b/l mastectomies in 2017 at for a benign lesion of the left breast and DCIS found in the right breast. Post operatively she underwent targeted and whole breast RTX. While she has a paternal FHX of BRCA 1 (+), her genetic testing was without identification of this gene variation. She had been on q6 imaging and ultimately opted for b/l mastectomy. On 07/15/23 she underwent b/l mastectomy with 1st stage tissue continuous loft operator reconstruction and acellular dermal matrix with Dr. Beasley and Dr. Arnold. She subsequently developed a PE for which she was treated with oral anticoagulation. On March 09, 2024 she underwent removal of the expanders and breast implant reconstruction. She was treated post operatively with 7 days of Lovenox and Cephalexin and had been feeling well until the day prior to presentation. In the ED she was found to be febrile with tachycardia, lactic acidosis 2.2 and leukocytosis of 11.7. After resuscitation, LA resolved to normal, leukocytosis increased to 20,000 on this am labs. CTA of the chest reveals a thin layer of fluid around the right implant with some inflammatory changes involving the surrounding muscle. There is no drainable fluid collection or abscess formation. After discussion with Dr. Arnold who is out, and [facility], it was determined that the patient could be admitted here to initiate IV broad spectrum abx, supportive care and determine if she would ultimately require transfer for a higher level of plastic surgery care. Allergies Allergy/AdvReac Type Severity Reaction Status Date / Time chlorpheniramine Allergy Unknown LOOPY Verified 03/09/24 11:50 [From Aller-Chlor DEPRESSIVE Decongestant] STATE pseudoephedrine Allergy Unknown LOOPY Verified 03/09/24 11:50 [From Aller-Chlor DEPRESSIVE Decongestant] STATE Home Medications Medication Instructions Recorded Confirmed Type levothyroxine 50 mcg tablet 50 mcg PO DAILYBB #90 tabs 06/21/23 03/26/24 Rx pravastatin 10 mg tablet 10 mg PO HS #90 tabs 08/29/23 03/26/24 Rx Prosthetic Mastectomy Bra #1 ea 09/29/23 03/26/24 Rx buspirone 15 mg tablet 15 mg PO HS #90 tabs 01/14/24 03/26/24 Rx sertraline 100 mg tablet 150 mg (1.5 x 100 mg) PO HS #135 02/13/24 03/26/24 Rx tabs Patient History Medical History 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 Normocytic anemia Right lower lobe lung mass Gallstones Hx of renal calculi Hx pulmonary embolism (07/2023) Hypothyroidism ADD (attention deficit disorder) Hiatal hernia Atypical ductal hyperplasia of right breast MVP (mitral valve prolapse) Depression with anxiety Abnormal menstrual cycle Surgical History Hx of bilateral mastectomy (07/15/23) Hx of wisdom tooth extraction History of lumpectomy of right breast (2021) H/O right breast biopsy (11/06/21) History of lumpectomy of left breast (2016) History of colonoscopy S/P fine needle aspiration (2009) Family History Grandmother (Paternal) Breast cancer Diabetes Aunt Breast cancer, Onset Age: 28 Father Diabetes Depression Hypertension Heart disease Mother Hypertension Diabetes Cancer Stroke Unknown Breast cancer, Onset Age: 26 Aunt Breast cancer, Onset Age: 42 Aunt Breast cancer, Onset Age: 44 Daughter No problems noted. Son No problems noted. Brother Cancer Other Ovarian cancer Denies family history of Colorectal cancer Social History Smoking Status: Never smoker Second Hand Exposure: No; Do You Dip or Chew Tobacco: No; Hx Alcohol Use: No Hx Substance Use: No Preferred Language: [place] Verdean Communication Ability: Effective Visual Impairment: No Limitations Hearing Ability: Normal E D Tech Required: No Beliefs That Will Affect Care: None marital status: Current Living Situation: Spouse current occupational status: employed current occupation: works from home How many Children do You have: 2 Other Information That Helps Us Care for You: No Feels Safe at Home: Yes Safety Concerns: Feels Safe At This Time Childhood Exposure to Second-Hand Smoke: No Diet: regular caffeine: Yes during the past year weight has: increased > 10 lbs Dental Care, Regularly: Yes Assistive Devices: None Review of Systems Review of Systems: As described above Physical Exam Constitutional: + obese and healthy appearing; not ill a ppearing, not in distress and not diaphoretic Respiratory: normal respiratory effort; no respiratory distress, no labored breathing and does not use accessory muscles Chest (Breasts): Additional Comments: Mastectomy surgical bra in place was removed for examination Incisions without evidence for infection No lymphatic streaking Right breast with very mild edema without cellulitis, TTP. Mild area of rad iation dermatitis UOQ right breast. Mild hyperpigmentation without bruising or evidence for hematoma formation No changes in the left breast Incision also intact and without evidence for infection Musculoskeletal: RUE without edema/swelling, no lymphatic streaking or erythema, non tender Results & Data Vital Signs (Past 12 Hours) Vital Signs Temp Pulse Pulse Resp BP Pulse Ox O2 Del Method 03/27/24 11:57 37.6 C H 103 H 24 102/72 93 Room Air 03/27/24 08:34 94 H 24 111/56 L 94 Room Air 03/27/24 07:05 102 H 03/27/24 06:16 36.9 C 103 H 22 111/68 96 Room Air 03/27/24 03:44 97 H 18 107/59 L 96 Room Air 03/27/24 02:17 94 H PG Care Time/CCT Total # of Minutes Spent Total Time Spent with Patient: Total time spent is greater than 50% in coordination of care (as documented) at patient's floor/unit and/or counseling patient: Coding Level of Care Code 46076 OFFICE CONSULT LVL M Diagnoses Tachycardia R00.0 Sepsis A41.9
[2024-03-27] MEDS: PLASMA-LYTE A 500 ML IV ONE (14:14)
[2024-03-27] MEDS: HYDROmorphone INJ 1 MG/ML SYRINGE IV PRN (15:20)
[2024-03-27 20:15] VITALS: O2SAT 91
[2024-03-27] MEDS: busPIRone 15 MG TAB PO SCH (20:39)
[2024-03-27] MEDS: SERTRALINE HCL 50 MG TABLET PO SCH (20:39)
[2024-03-27] MEDS ORDERED: guaiFENesin/CODEINE 100MG/10MG 5ML UDC PO PRN (20:54)
[2024-03-27] MEDS ORDERED: COUGH DROP (SUGAR FREE) LOZ 24 LOZ/1 BOX BUCCAL PRN (20:54)
[2024-03-27] MEDS ORDERED: PRAVASTATIN SOD 10 MG TAB PO SCH (21:00)
[2024-03-27 21:20] VITALS: BP 110/65; PULSE 114; RESP 18; TEMP 100.2
[2024-03-27] MEDS: HYDROmorphone INJ 0.5 MG/0.5 ML SYR IV STA (23:12)
--- NOTE | 2024-03-28 04:38 | Communication Note ---
Date of Service: March 28, 2024 This patient [facility] secondary to sepsis and concern for infected right breast implant. CT scan of the chest upon admission showed the patient had fluid surrounding the right breast implant. Initially at time of admission patient was noted to have a white blood cell count of 11.72. After being in the hospital for 1 day her white count blaise to 20.8. She initially received antibiotics form of vancomycin and Zosyn and this was switched to daptomycin and Zosyn. I evaluated the patient the evening of 03/27/2024 on the physical exam patient's right breast incision appeared intact. There is minimal cellulitis. The patient did have exquisite tenderness however over this area. After my initial evaluation I checked on the patient several hours later and she had subsequent spiked a temperature of 102 despite being on antibiotics. Due to ongoing concern for right breast implant infection plastic surgery department at [facility] in [place], [place] was contacted and they accepted the patient on transfer for definitive care.
[2024-03-28] MEDS ORDERED: ENOXAPARIN INJ 40 MG/0.4 ML SYR SQ SCH (09:00)
--- NOTE | 2024-03-28 21:30 | Billing Data ---
Date of Service March 28, 2024 Coding Level of Care Code 05517 INT INP/OBS CARE
--- NOTE | 2024-03-29 08:50 | Electrocardiogram Report ---
Test Reason : Blood Pressure : */* mmHG Vent. Rate : 126 BPM Atrial Rate : * BPM P-R Int : * ms QRS Dur : 80 ms QT Int : 406 ms P-R-T Axes : * 36 23 degrees QTcB Int : 588 ms Sinus tachycardia Cannot rule out Anterior infarct (cited on or before 07-Aug-2023) Abnormal ECG When compared with ECG of 07-Aug-2023 10:55, Sinus tachycardia has replaced Sinus rhythm Confirmed by Artie Garza ([id number]) on 03/29/2024 8:50:28 AM Referred By: Confirmed By: Artie Garza
--- NOTE | 2024-03-29 14:57 | Electrocardiogram Report ---
Test Reason : Blood Pressure : */* mmHG Vent. Rate : 102 BPM Atrial Rate : 102 BPM P-R Int : 210 ms QRS Dur : 92 ms QT Int : 360 ms P-R-T Axes : 38 5 16 degrees QTcB Int : 469 ms Sinus tachycardia with 1st degree A-V block Inferior infarct (cited on or before 26-Mar-2024) Abnormal ECG When compared with ECG of 26-Mar-2024 18:01, (unconfirmed) HR has decreased Confirmed by Artie Garza ([id number]) on 03/29/2024 2:57:35 PM Referred By: REFERRED SELF Confirmed By: Artie Garza
== END 2024-03-27 23:37 | disposition short-term general hospital (02) | DRG 863 ==
LOC: ED 17:35 → EDINP 23:02 → SUATTDRO 23:02 → 2S 03-27 02:57